=== PATIENT | male | born 1970 | race African-American/Black ===

== ENCOUNTER 2017-06-15 06:21 | Emergency (ER) | payer OTHER, SELFPAY ==
[2017-06-15 06:56] LABS: Absolute Lymphocytes (CBC) 1.8 K/uL (0.7-4.9); Absolute Monocytes 0.7 K/uL (0.1-1.3); Absolute Neutrophil 3.9 K/uL (1.8-8.0); Basophils % 0.2 % (0-1.3); Eosinophils % 1.1 % (0-4.4); Hematocrit 40.6 % (39.6-49.0); Lymphocytes % 27.7 % (15.3-44.8); MCV 86.9 fL (80-100); MPV 8.6 fL (7.6-11.3); Monocytes % 10.2 % (3.3-12.3); RBC Red Blood Cell Count 4.68 M/uL (4.33-5.43)
[2017-06-15 07:00] LABS: Protime INR 0.97
[2017-06-15] MEDS ORDERED: ONDANSETRON 4 MG/2 ML VIAL ONE (07:01)
--- NOTE | 2017-06-15 07:41 | RAD REPORT ---
EXAM DESCRIPTION: CT - Head Brain Wo Cont - 06/15/2017 7:05 am CLINICAL HISTORY: Headache COMPARISON: February 2017 TECHNIQUE: Computed axial tomography of the head was obtained. IV contrast was not requested. All CT scans are performed using dose optimization technique as appropriate and may include automated exposure control or mA/KV adjustment according to patient size. FINDINGS: An intracranial bleed is not seen . The ventricles are normal in caliber. No extra-axial fluid collection is noted. Fluid within the sinuses/ mastoids is not seen. IMPRESSION: No acute intracranial abnormality is seen. If patient's symptoms persist MRI of the bra in would be recommended.
[2017-06-15 08:24] LABS: Bicarbonate 29 mEq/L (21-31); Glucose Level 95 mg/dL (65-120); Potassium 3.7 mEq/L (3.6-5.0); Sodium Level 136 mEq/L (135-145)
[2017-06-15 08:30] LABS: ALT/SGPT 25 IU/L (10-60); AST/SGOT 33 IU/L (10-42); Albumin 4.2 g/dL (3.2-5.5); Alkaline Phosphatase 62 IU/L (42-121); BUN Blood Urea Nitrogen 13 mg/dL (6-20); Bilirubin Direct 0.1 mg/dL (0-0.2); Bilirubin Total 0.8 mg/dL (0.3-1.2); Protein, Total 7.4 g/dL (6.0-8.3)
--- NOTE | 2017-06-15 08:30 | RAD REPORT ---
EXAM DESCRIPTION: Cosmo Single View06/15/2017 6:58 am CLINICAL HISTORY: Chest pain COMPARISON: February 2017 FINDINGS: The lungs appear clear of acute infiltrate. The heart is normal size IMPRESSION: No acute abnormalities displayed
[2017-06-15 08:32] LABS: Urine Blood NEGATIVE (NEG); Urine Glucose NEGATIVE (NEG); Urine Protein NEGATIVE (NEG); Urine Specific Gravity 1.015 (1.005-1.030)
--- NOTE | 2017-06-15 10:08 | EKG ---
Test Date: 2017-06-15 Test Time: 06:29:44 Rewinder Operator: BENY MEASUREMENT RESULTS: Intervals: Rate: 66 WA: 166 QRSD: 82 QT: 394 QTc: 413 [place]: P: 64 WA: 166 QRS: 37 T: 39 INTERPRETIVE STATEMENTS: Normal sinus rhythm Normal ECG Compared to ECG 02/20/2017 09:57:59 Sinus bradycardia no longer present Electronically Signed On 06-15-17 10:07:32 CDT by Alexander Farris
--- NOTE | 2017-06-15 11:51 | ER ---
Nurse's Notes [facility] Name: Damian Abbasi Jr Age: 47 yrs Sex: Male : 1970 Arrival Date: 06/15/2017 Time: 06:22 Bed 7 Private MD: Diagnosis: Chest pain, unspecified;Headache Presentation: 06/15 06:25 Presenting complaint: Patient states: that he woke up at 0330 with migraine. On his way fc to work became photophobic and had nausea. He then went home and at 0530 he started to have chest pain and shortness of breath. States that he was here a couple of months ago and given 30 days worth of medication but did not follow up because he did not have the money so he stopped taking his medications. Transition of care: patient was not received from another setting of care. Onset of symptoms was June 15, 2017 at 03:30. Care prior to arrival: Medication(s) given: Naproxsyn. 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 - Social history:: Smoking status: Patient/guardian denies using tobacco, the patient reports quitting approximately 3 years ago, Patient/guardian denies using alcohol, street drugs. Screenin:36 Abuse screen: Denies threats or abuse. Nutritional screening: No deficits noted. Tuberculosis screening: No symptoms or risk factors identified. Fall Risk None identified. Assessment: 06:34 General: Appears uncomfortable, slender, Behavior is calm, cooperative, Reports bb migraine, chest pain, nausea starting this morning. Pain: Complains of pain in chest Pain does not radiate. Pain began suddenly. Neuro: Level of Consciousness is awake, alert, obeys commands, Oriented to person, place, time, situation. Cardiovascular: Heart tones S1 S2 present Capillary refill < 3 seconds Patient's skin is warm and dry. Pulses are all present. Edema is absent. Rhythm is sinus rhythm. Respiratory: Respiratory effort is even, unlabored, Respiratory pattern is regular, Breath sounds are clear bilaterally. GI: Abdomen is non-distended, Bowel sounds present X 4 quads. : No signs and/or symptoms were reported regarding the genitourinary system. Derm: Skin is dry, Skin is normal, Skin temperature is warm. Musculoskeletal: Circulation, motion, and sensation intact. 07:10 Reassessment: Patient and/or family updated on plan of care and expected duration. Pain jl7 level reassessed. Patient is alert, oriented x 3, equal unlabored respirations, skin warm/dry/pink. Pain: Complains of pain in chest Pain does not radiate. Pain currently is 8 out of 10 on a pain scale. Quality of pain is described as "It feels like a knot." Pain began 4 hours ago. Is continuous. Pain: Complains of pain in headache Pain does not radiate. Pain currently is 8 out of 10 on a pain scale. Quality of pain is described as squeezing, "and pulling." Pain began 4 hours ago. Is continuous. Neuro: Level of Consciousness is awake, alert, obeys commands, Oriented to person, place, time, situation. Cardiovascular: Heart tones S1 S2 present Patient's skin is warm and dry. Rhythm is sinus rhythm. Respiratory: Airway is patent Respiratory effort is even, unlabored, Respiratory pattern is regular, symmetrical. GI: Patient currently denies diarrhea, nausea, vomiting, Pt states "I felt nauseous when I got out of the machine but it's better now.". Derm: Skin is dry, Skin is normal, Skin temperature is warm. Musculoskeletal: Range of motion: intact in all extremities. 08:30 Reassessment: No changes from previously documented assessment. Patient and/or family jl7 updated on plan of care and expected duration. Pain level reassessed. Patient is alert, oriented x 3, equal unlabored respirations, skin warm/dry/pink. 09:29 Reassessment: patient resting in bed, semi-folwers. Eyes closed, respirations are even ap3 and unlabored. Call roman within reach, bed in lowest position, side rails up X's one. 10:30 Reassessment: No changes from previously documented assessment. Patient and/or family jl7 updated on plan of care and expected duration. Pain level reassessed. Patient is alert, oriented x 3, equal unlabored respirations, skin warm/dry/pink. 12:00 Reassessment: patient complains of headache and chest pain, with pain scale of 10/10. ap3 Provider notified, new orders received. . Vital Signs: 06:25 BP 133 / 83; Pulse 62; Resp 18; Temp 97.7(O); Pulse Ox 100% on R/A; Weight 74.84 kg fc (R); Height 5 ft. 10 in. (177.80 cm) (R); Pain 8/10; 07:10 BP 123 / 93; Pulse 54; Resp 16 S; Pulse Ox 99% on R/A; Pain 8/10; jl7 07:47 BP 117 / 84; Pulse 54; Resp 12; Pulse Ox 100% ; jl7 09:27 BP 129 / 95; Pulse 51; Resp 10; Pulse Ox 100% on R/A; ap3 10:30 BP 111 / 83; Pulse 56; Pulse Ox 99% on R/A; ap3 11:30 BP 132 / 89; Pulse 54; Pulse Ox 100% on R/A; ap3 12:15 BP 122 / 91; Pulse 66; Pulse Ox 100% on R/A; ap3 06:25 Body Mass Index 23.67 (74.84 kg, 177.80 cm) ED Course: 06:22 Patient arrived in ED. ds1 06:25 Arm band placed on Patient placed in an exam room, on a stretcher. fc 06:25 Patient has correct armband on for positive identification. Placed in gown. Bed in low fc position. Call light in reach. high lead yarder on. Pulse ox on. NIBP on. 06:25 No provider procedures requiring assistance completed. fc 06:26 Andrea Villeda NP is PHCP. pm1 06:26 Mariano Alfonso MD is Attending Physician. pm1 06:33 Cara Castellanos RN is Primary Nurse. bb 06:34 Patient maintains SpO2 saturation greater than 95% on room air. bb 06:35 Triage completed. fc 06:37 EKG done, by ED staff, reviewed by Andrea Villeda NP. bb 06:40 Initial lab(s) drawn, by ED staff, sent to lab. Missed attempt(s): 20 gauge in right bb antecubital area. by [facility] tech blood was drawn. 06:45 Inserted saline lock: 20 gauge in left antecubital area, using aseptic technique. bb 06:52 X-ray completed. Portable x-ray completed in exam room. Patient tolerated procedure jb2 well. 06:58 XRAY Chest (1 view) In Process Unspecified. EDMS 07:05 CT Head Brain wo Cont In Process Unspecified. EDMS 07:09 Primary Nurse role handed off by Cara Castellanos RN jl7 07:09 Lynne Franklin, LOS is Primary Nurse. jl7 07:53 Urine collected: clean catch specimen, clear. [facility] 08:16 Awaiting lab results. jl7 12:19 IV discontinued, intact, bleeding controlled, No redness/swelling at site. Pressure ap3 dressing applied. Administered Medications: 06:50 Drug: Zofran 4 mg Route: IVP; Site: left antecubital; bb 07:10 Follow up: Response: No adverse reaction; Nausea is decreased jl7 12:02 Drug: Reglan 10 mg Route: IVP; Site: left antecubital; ae1 12:10 Follow up: Response: No adverse reaction jl7 12:04 Drug: TORadol 30 mg Route: IVP; Site: left antecubital; ae1 12:10 Follow up: Response: No adverse reaction jl7 12:06 Drug: Benadryl 12.5 mg Route: IVP; Site: left antecubital; ae1 12:10 Follow up: Response: No adverse reaction jl7 Outcome: 11:51 Discharge ordered by . pm1 12:19 Discharged to home ambulatory, with family. ap3 12:19 Condition: stable 12:19 Discharge instructions given to patient, Instructed on discharge instructions, Demonstrated understanding of instructions. 12:22 Attestation : I agree with everything documented by Larisa, student nurse. jl7 12:23 Patient left the ED. jl7 Signatures: Dispatcher [employer] EDMS Dinesh August jbAmber Sagastume RN RN fc Sanford, Demi ds1 Cara Castellanos RN RN bb Marinas, Patrick, [employer] pm1 Santi Carrillo RN RN ae1 Willa Gonsales [facility] Lynne Franklin RN RN jl7 Larisa Brandt ap3
--- NOTE | 2017-06-15 11:52 | EDPHYS ---
Physician Documentation [facility] Name: Damian Abbasi Jr Age: 47 yrs Sex: Male : 1970 Arrival Date: 06/15/2017 Time: 06:22 Bed 7 Private MD: ED Physician Mariano Alfonso HPI: 06/15 07:30 This 47 yrs old Black Male presents to ER via Ambulatory with complaints of Chest Pain, pm1 Nausea, Headache. 07:30 The patient or guardian reports chest pain that is located primarily in the substernal pm1 area. Onset: at 05:30. The pain does not radiate. Associated signs and symptoms: Pertinent positives: nausea, shortness of breath, Headache onset at 0330, Pertinent negatives: abdominal pain, cough. The chest pain is described as aching. Duration: The patient or guardian reports a single episode. Modifying factors: The symptoms are alleviated by nothing. the symptoms are aggravated by deep breath, palpation of area. The patient has experienced a previous episode, last month. 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 - Social history:: Smoking status: Patient/guardian denies using tobacco, the patient reports quitting approximately 3 years ago, Patient/guardian denies using alcohol, street drugs. ROS: 07:30 Constitutional: Negative for fever, chills, and weight loss, Eyes: Negative for injury, pm1 pain, redness, and discharge, ENT: Negative for injury, pain, and discharge, Neck: Negative for injury, pain, and swelling. 07:30 Respiratory: Negative for shortness of breath, cough, wheezing, and pleuritic chest pain, Abdomen/GI: Negative for abdominal pain, nausea, vomiting, diarrhea, and constipation, Back: Negative for injury and pain, : Negative for injury, bleeding, discharge, and swelling, MS/Extremity: Negative for injury and deformity, Skin: Negative for injury, rash, and discoloration. 07:30 Cardiovascular: Positive for chest pain, Negative for orthopnea, palpitations. 07:30 Neuro: Positive for headache, Negative for altered mental status, dizziness, numbness, seizure activity, weakness. Exam: 07:30 Constitutional: This is a well developed, well nourished patient who is awake, alert, pm1 and in no acute distress. Head/Face: Normocephalic, atraumatic. Eyes: Pupils equal round and reactive to light, extra-ocular motions intact. Lids and lashes normal. Conjunctiva and sclera are non-icteric and not injected. Cornea within normal limits. Periorbital areas with no swelling, redness, or edema. ENT: Nares patent. No nasal discharge, no septal abnormalities noted. Tympanic membranes are normal and external auditory canals are clear. Oropharynx with no redness, swelling, or masses, exudates, or evidence of obstruction, uvula midline. Mucous membranes moist. Neck: Trachea midline, no thyromegaly or masses palpated, and no cervical lymphadenopathy. Supple, full range of motion without nuchal rigidity, or vertebral point tenderness. No Meningismus. 07:30 Cardiovascular: Regular rate and rhythm with a normal S1 and S2. No gallops, murmurs, or rubs. Normal PMI, no JVD. No pulse deficits. Respiratory: Lungs have equal breath sounds bilaterally, clear to auscultation and percussion. No rales, rhonchi or wheezes noted. No increased work of breathing, no retractions or nasal flaring. Abdomen/GI: Soft, non-tender, with normal bowel sounds. No distension or tympany. No guarding or rebound. No evidence of tenderness throughout. Back: No spinal tenderness. No costovertebral tenderness. Full range of motion. Skin: Warm, dry with normal turgor. Normal color with no rashes, no lesions, and no evidence of cellulitis. MS/ Extremity: Pulses equal, no cyanosis. Neurovascular intact. Full, normal range of motion. 07:30 Chest/axilla: Inspection: normal, Palpation: tenderness, of the mid-sternal area, that totally reproduces the patient's complaints. 07:30 Neuro: Orientation: is normal, Motor: is normal, moves all fours, Gait: is steady, at a normal pace, without difficulty. Vital Signs: 06:25 BP 133 / 83; Pulse 62; Resp 18; Temp 97.7(O); Pulse Ox 100% on R/A; Weight 74.84 kg fc (R); Height 5 ft. 10 in. (177.80 cm) (R); Pain 8/10; 07:10 BP 123 / 93; Pulse 54; Resp 16 S; Pulse Ox 99% on R/A; Pain 8/10; jl7 07:47 BP 117 / 84; Pulse 54; Resp 12; Pulse Ox 100% ; jl7 09:27 BP 129 / 95; Pulse 51; Resp 10; Pulse Ox 100% on R/A; ap3 10:30 BP 111 / 83; Pulse 56; Pulse Ox 99% on R/A; ap3 11:30 BP 132 / 89; Pulse 54; Pulse Ox 100% on R/A; ap3 12:15 BP 122 / 91; Pulse 66; Pulse Ox 100% on R/A; ap3 06:25 Body Mass Index 23.67 (74.84 kg, 177.80 cm) fc MDM: 06:36 Patient medically screened. pm1 11:50 Data reviewed: vital signs. Data interpreted: Pulse oximetry: on room air is 100 %. pm1 Interpretation: normal. Counseling: I had a detailed discussion with the patient and/or guardian regarding: the historical points, exam findings, and any diagnostic results supporting the discharge/admit diagnosis, lab results, radiology results, the need for outpatient follow up, to return to the emergency department if symptoms worsen or persist or if there are any questions or concerns that arise at home. 06/15 06:37 Order name: Basic Metabolic Panel; Complete Time: 08:37 pm1 06/15 06:37 Order name: BNP; Complete Time: 08:37 pm1 06/15 06:37 Order name: CBC with Diff; Complete Time: 07:29 pm06/15 06:37 Order name: LFT's; Complete Time: 08:37 pm1 06/15 06:37 Order name: Magnesium; Complete Time: 08:37 pm1 06/15 06:37 Order name: PT-INR; Complete Time: 07:29 pm06/15 06:37 Order name: Ptt, Activated; Complete Time: 07:29 pm06/15 06:37 Order name: Troponin (emerg Dept Use Only); Complete Time: 08:37 pm1 06/15 06:37 Order name: XRAY Chest (1 view); Complete Time: 08:37 pm1 06/15 06:37 Order name: CT Head Brain wo Cont; Complete Time: 07:44 pm1 06/15 07:54 Order name: Urine Dipstick--Ancillary (enter results); Complete Time: 08:37 ag 06/15 10:46 Order name: Troponin (emerg Dept Use Only); Complete Time: 11:48 pm1 06/15 06:37 Order name: EKG; Complete Time: 06:38 pm1 06/15 06:37 Order name: Cardiac monitoring; Complete Time: 06:39 pm1 06/15 06:37 Order name: EKG - Nurse/Tech; Complete Time: 06:39 pm1 06/15 06:37 Order name: IV Saline Lock; Complete Time: 06:50 pm1 06/15 06:37 Order name: Labs collected and sent; Complete Time: 06:50 pm1 06/15 06:37 Order name: O2 Per Protocol; Complete Time: 06:38 pm1 06/15 06:37 Order name: O2 Sat Monitoring; Complete Time: 06:38 pm1 06/15 06:37 Order name: Urine Dipstick-Ancillary (obtain specimen); Complete Time: 07:47 pm1 Administered Medications: 06:50 Drug: Zofran 4 mg Route: IVP; Site: left antecubital; bb 07:10 Follow up: Response: No adverse reaction; Nausea is decreased jl7 12:02 Drug: Reglan 10 mg Route: IVP; Site: left antecubital; ae1 12:10 Follow up: Response: No adverse reaction jl7 12:04 Drug: TORadol 30 mg Route: IVP; Site: left antecubital; ae1 12:10 Follow up: Response: No adverse reaction jl7 12:06 Drug: Benadryl 12.5 mg Route: IVP; Site: left antecubital; ae1 12:10 Follow up: Response: No adverse reaction jl7 Disposition: 06/15/17 11:51 Discharged to Home. Impression: Chest pain, unspecified, Headache. - Condition is Stable. - Discharge Instructions: Nonspecific Chest Pain, General Headache Without Cause. - Medication Reconciliation Form, Thank You Letter, Work release form form. - Follow up: Emergency Department; When: As needed; Reason: Worsening of condition. Follow up: Private Physician; When: 2 - 3 days; Reason: Recheck today's complaints, Continuance of care, Re-evaluation by your physician. - Problem is new. - Symptoms have improved. Addendum: 06/17/2017 07:01 Co-signature as Attending Physician, Mariano Alfonso MD. r n Signatures: Dispatcher [employer] EDAmber Krishnan RN RN Cara Mcfarlane RN RN Mariano Wing MD MD rn Marinas, Patrick, TUBE TURNER TUBE TURNER pm1 Santi Carrillo RN RN ae1 Lynne Franklin RN RN jl7
[2017-06-15] MEDS ORDERED: METOCLOPRAMIDE 10 MG/2mL INJ ONE (12:16)
[2017-06-15] MEDS ORDERED: KETOROLAC 30 MG/ML INJ ONE (12:16)
[2017-06-15] MEDS ORDERED: DIPHENHYDRAMINE 50 MG/ML VIAL ONE (12:16)
[2017-06-15 12:34] VITALS: TEMP 97.7
[2017-06-15 12:40] VITALS: O2SAT 100
[2017-06-15 12:41] VITALS: BP 122/91
== END 2017-06-15 12:23 | disposition home or self-care (01) ==
LOC: ER 06:21
DX: R51 Headache (principal); I10 Essential (primary) hypertension; Z91.013 Allergy to seafood
CPT/HCPCS: 36415; 70450; 71045; 80048; 80076; 81003; 83735; 83880; 84484; 85025; 85610; 85730; 93005; 96374; 96375; 99285; J2405; J2765

== ENCOUNTER 2018-08-29 08:17 | Emergency (ER) | payer SELFPAY ==
[2018-08-29 09:04] LABS: Absolute Lymphocytes (CBC) 1.5 K/uL (0.7-4.9); Basophils % 0.4 % (0-1.3); Eosinophils % 0.4 % (0-4.4); Hematocrit 43.5 % (39.6-49.0); Lymphocytes % 26.6 % (15.3-44.8); MPV 8.4 fL (7.6-11.3); Monocytes % 7.8 % (3.3-12.3); RBC Red Blood Cell Count 4.89 M/uL (4.33-5.43)
[2018-08-29 09:08] LABS: Protime INR 1.04
[2018-08-29 09:20] LABS: ALT/SGPT 27 U/L (12-78); AST/SGOT 21 U/L (15-37); Alkaline Phosphatase 64 U/L (45-117); BUN Blood Urea Nitrogen 10 mg/dL (7-18); Bicarbonate 30 mmol/L (21-32); Bilirubin Direct < 0.1 mg/dL (0-0.2); Bilirubin Total 0.3 mg/dL (0.2-1.0); Glucose Level 95 mg/dL (74-106); Magnesium 2.2 mg/dL (1.8-2.4); NT PRO-BNP 6 pg/mL (<125); Potassium 4.3 mmol/L (3.5-5.1); Protein, Total 8.3 g/dL (6.4-8.2); Sodium Level 140 mmol/L (136-145); Troponin (Emerg Dept Use Only) < 0.02 ng/mL (0.0-0.045)
--- NOTE | 2018-08-29 09:21 | RAD REPORT ---
EXAM DESCRIPTION: RAD - Chest Single View - 08/29/2018 9:10 am CLINICAL HISTORY: CHEST PAIN Chest pain. COMPARISON: Chest Single View dated 06/15/2017; Chest Single View dated 02/20/2017; Chest Single View dated 12/17/2015 FINDINGS: Portable technique limits examination quality. The lungs are grossly clear. The heart is normal in size. No displaced fractures. IMPRESSION: No acute intrathoracic process suspected.
--- NOTE | 2018-08-29 11:04 | ER ---
Nurse's Notes [facility] Name: Damian Abbasi Jr Age: 48 yrs Sex: Male : 1970 Arrival Date: 08/29/2018 Time: 08:18 Bed 15 Private MD: Diagnosis: Dizziness and giddiness;Weakness Presentation: 08/29 08:48 Presenting complaint: Patient states: I was driving to work and I got a headache, ls4 nauseated and dizzy. I work in [place] so I told my boss I could work and drove back here. Transition of care: patient was not received from another setting of care. Onset of symptoms was August 29, 2018 at 06:00. Risk Assessment: Do you want to hurt yourself or someone else? Patient reports no desire to harm self or others. Initial Sepsis Screen: Does the patient meet any 2 criteria? No. Patient's initial sepsis screen is negative. Does the patient have a suspected source of infection? No. Patient's initial sepsis screen is negative. Care prior to arrival: None. 08:48 Method Of Arrival: Ambulatory ls4 08:48 Acuity: CORTNEY 3 ls4 Triage Assessment: 08:50 General: Appears in no apparent distress. Behavior is flat. Pain: Complains of pain in ls4 forehead and left eye Pain currently is 4 out of 10 on a pain scale. Quality of pain is described as aching. Neuro: Level of Consciousness is awake, alert, obeys commands, Oriented to person, place, time, situation, Reports dizziness, headache. GI: Reports nausea. Derm: Skin is pink, warm \T\ dry. 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 - Social history:: Smoking status: Patient/guardian denies using tobacco. - Ebola Screening: : Patient negative for fever greater than or equal to 101.5 degrees Fahrenheit, and additional compatible Ebola Virus Disease symptoms Patient denies exposure to infectious person Patient denies travel to an Ebola-affected area in the 21 days before illness onset No symptoms or risks identified at this time. Screenin:53 Abuse screen: Denies threats or abuse. Denies injuries from another. Nutritional ls4 screening: No deficits noted. Tuberculosis screening: No symptoms or risk factors identified. Fall Risk None identified. Assessment: 08:55 GI: Reports nausea. ls4 09:40 Reassessment: Patient appears in no apparent distress at this time. Patient and/or ls4 family updated on plan of care and expected duration. Pain level reassessed. Patient is alert, oriented x 3, equal unlabored respirations, skin warm/dry/pink. 10:40 Reassessment: Patient appears in no apparent distress at this time. Patient and/or ls4 family updated on plan of care and expected duration. Pain level reassessed. Patient is alert, oriented x 3, equal unlabored respirations, skin warm/dry/pink. 11:21 Reassessment: Patient appears in no apparent distress at this time. Patient and/or ls4 family updated on plan of care and expected duration. Pain level reassessed. Patient is alert, oriented x 3, equal unlabored respirations, skin warm/dry/pink. discharge delayed for additional tests and fluids. GI: Abdomen is flat, non-distended, Bowel sounds present X 4 quads. Abd is soft and non tender X 4 quads. 12:30 Reassessment: Patient appears in no apparent distress at this time. Patient and/or ls4 family updated on plan of care and expected duration. Pain level reassessed. Patient is alert, oriented x 3, equal unlabored respirations, skin warm/dry/pink. 13:13 Reassessment: Patient appears in no apparent distress at this time. Patient and/or ls4 family updated on plan of care and expected duration. Pain level reassessed. Patient is alert, oriented x 3, equal unlabored respirations, skin warm/dry/pink. Vital Signs: 08:52 BP 119 / 92; Pulse 70; Resp 16; Temp 98.0(O); Pulse Ox 99% on R/A; Weight 74.84 kg; ls4 Height 5 ft. 10 in. (177.80 cm); Pain 4/10; 10:00 BP 111 / 96; Pulse 69; Resp 16; Pulse Ox 99% on R/A; Pain 4/10; ls4 10:41 BP 111 / 89; Pulse 57; Resp 16; Temp 98.2(O); Pulse Ox 100% on R/A; Pain 4/10; ls4 11:30 BP 102 / 87; Pulse 62; Resp 14; Temp 98.1(O); Pain 3/10; ls4 12:30 BP 114 / 88; Pulse 59; Resp 14; Pulse Ox 99% on R/A; Pain 3/10; ls4 13:12 BP 112 / 88; Pulse 59; Resp 14; Pulse Ox 99% on R/A; Pain 3/10; ls4 08:52 Body Mass Index 23.67 (74.84 kg, 177.80 cm) ls4 ED Course: 08:18 Patient arrived in ED. as 08:33 Manuelito Schulz MD is Attending Physician. kdr 08:39 Katlyn Parsons, LOS is Primary Nurse. ls4 08:50 Triage completed. ls4 08:52 Arm band placed on. ls4 08:53 Patient has correct armband on for positive identification. Bed in low position. Call ls4 light in reach. Side rails up X 1. classroom monitor on. Pulse ox on. NIBP on. Verbal reassurance given. 08:53 No provider procedures requiring assistance completed. Initial lab(s) drawn, by ED ls4 staff, sent to lab. 08:55 Initial lab(s) drawn, by ks, sent to lab. Inserted saline lock: 20 gauge in right dh3 antecubital area, using aseptic technique. Blood collected. 09:03 X-ray completed. Portable x-ray completed in exam room. Patient tolerated procedure jb2 well. 09:08 XRAY Chest (1 view) In Process Unspecified. EDMS 09:41 EKG done, by cv tech. reviewed by Manuelito Schulz MD. at1 11:26 CT Head Brain wo Cont In Process Unspecified. EDMS 13:41 IV discontinued, intact, bleeding controlled, No redness/swelling at site. Pressure ls4 dressing applied. Administered Medications: 11:19 Drug: NS 0.9% 1000 ml Route: IV; Rate: 1 bolus; Site: right antecubital; ls4 12:30 Follow up: IV Status: Completed infusion; IV Intake: 1000ml ls4 Intake: 12:30 IV: 1000ml; Total: 1000ml. ls4 Outcome: 11:04 Discharge ordered by . kdr 13:41 Discharged to home ambulatory, with family. ls4 13:41 Condition: good 13:41 Discharge instructions given to patient, family, Instructed on discharge instructions, follow up and referral plans. medication usage, safety practices, Demonstrated understanding of instructions, follow-up care, medications, Prescriptions given X 2. 13:42 Patient left the ED. ls4 Signatures: Dispatcher [employer] EDMS Manuelito Schulz MD MD kdr Buechter, Jesse jb2 Martinez, Amelia as Gonzales, Amanda, coldfusion EKG Tat1 Vaishali Rodarte 3 Katlyn Parsons, RN RN ls4
--- NOTE | 2018-08-29 11:05 | EDPHYS ---
Physician Documentation [facility] Name: Damian Abbasi Jr Age: 48 yrs Sex: Male : 1970 Arrival Date: 08/29/2018 Time: 08:18 Bed 15 Private MD: ED Physician Manuelito Schulz HPI: 08/29 10:59 This 48 yrs old Black Male presents to ER via Ambulatory with complaints of High Blood kdr Pressure, Dizziness, Nausea. 10:59 The patient has elevated blood pressure and discovered this at home. Onset: The kdr symptoms/episode began/occurred at an unknown time. Modifying factors: The symptoms are aggravated by movement, Bright lights, The symptoms are alleviated by. Associated signs and symptoms: Pertinent positives: nausea, Photophobia. Severity of symptoms: At its worst the blood pressure was mild, in the emergency department the blood pressure is now normal. The blood pressure problem is resolved. The patient has experienced similar episodes in the past, several times. The patient has not recently seen a physician. 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 - Social history:: Smoking status: Patient/guardian denies using tobacco. - Ebola Screening: : Patient negative for fever greater than or equal to 101.5 degrees Fahrenheit, and additional compatible Ebola Virus Disease symptoms Patient denies exposure to infectious person Patient denies travel to an Ebola-affected area in the 21 days before illness onset No symptoms or risks identified at this time. ROS: 10:59 Constitutional: Negative for fever, chills, and weight loss, ENT: Negative for injury, kdr pain, and discharge, Neck: Negative for injury, pain, and swelling, Cardiovascular: Negative for chest pain, palpitations, and edema, Respiratory: Negative for shortness of breath, cough, wheezing, and pleuritic chest pain, Abdomen/GI: Negative for abdominal pain, nausea, vomiting, diarrhea, and constipation, Back: Negative for injury and pain, : Negative for injury, bleeding, discharge, and swelling, MS/Extremity: Negative for injury and deformity, Skin: Negative for injury, rash, and discoloration, Psych: Negative for depression, anxiety, suicide ideation, homicidal ideation, and hallucinations, Allergy/Immunology: Negative for hives, rash, and allergies, Endocrine: Negative for neck swelling, polydipsia, polyuria, polyphagia, and marked weight changes, Hematologic/Lymphatic: Negative for swollen nodes, abnormal bleeding, and unusual bruising. 10:59 Eyes: Positive for photophobia, Negative for discharge, icterus, injury or acute deformity, itching, matting, pain, swelling, tearing, vision loss, visual disturbance. Exam: 10:59 Constitutional: This is a well developed, well nourished patient who is awake, alert, kdr and in no acute distress. Head/Face: Normocephalic, atraumatic. Eyes: Pupils equal round and reactive to light, extra-ocular motions intact. Lids and lashes normal. Conjunctiva and sclera are non-icteric and not injected. Cornea within normal limits. Periorbital areas with no swelling, redness, or edema. Neck: Trachea midline, no thyromegaly or masses palpated, and no cervical lymphadenopathy. Supple, full range of motion without nuchal rigidity, or vertebral point tenderness. No Meningismus. Chest/axilla: Normal chest wall appearance and motion. Nontender with no deformity. No lesions are appreciated. Cardiovascular: Regular rate and rhythm with a normal S1 and S2. No gallops, murmurs, or rubs. Normal PMI, no JVD. No pulse deficits. Respiratory: Lungs have equal breath sounds bilaterally, clear to auscultation and percussion. No rales, rhonchi or wheezes noted. No increased work of breathing, no retractions or nasal flaring. Abdomen/GI: Soft, non-tender, with normal bowel sounds. No distension or tympany. No guarding or rebound. No evidence of tenderness throughout. Back: No spinal tenderness. No costovertebral tenderness. Full range of motion. Skin: Warm, dry with normal turgor. Normal color with no rashes, no lesions, and no evidence of cellulitis. MS/ Extremity: Pulses equal, no cyanosis. Neurovascular intact. Full, normal range of motion. Neuro: Awake and alert, GCS 15, oriented to person, place, time, and situation. Cranial nerves II-XII grossly intact. Motor strength 5/5 in all extremities. Sensory grossly intact. Cerebellar exam normal. Normal gait. Psych: Awake, alert, with orientation to person, place and time. Behavior, mood, and affect are within normal limits. 10:59 ENT: External ear(s): Ear canal(s): TM's: dullness. Vital Signs: 08:52 BP 119 / 92; Pulse 70; Resp 16; Temp 98.0(O); Pulse Ox 99% on R/A; Weight 74.84 kg; ls4 Height 5 ft. 10 in. (177.80 cm); Pain 4/10; 10:00 BP 111 / 96; Pulse 69; Resp 16; Pulse Ox 99% on R/A; Pain 4/10; ls4 10:41 BP 111 / 89; Pulse 57; Resp 16; Temp 98.2(O); Pulse Ox 100% on R/A; Pain 4/10; ls4 11:30 BP 102 / 87; Pulse 62; Resp 14; Temp 98.1(O); Pain 3/10; ls4 12:30 BP 114 / 88; Pulse 59; Resp 14; Pulse Ox 99% on R/A; Pain 3/10; ls4 13:12 BP 112 / 88; Pulse 59; Resp 14; Pulse Ox 99% on R/A; Pain 3/10; ls4 08:52 Body Mass Index 23.67 (74.84 kg, 177.80 cm) ls4 MDM: 10:59 Data reviewed: vital signs, nurses notes, lab test result(s), radiologic studies. kdr Counseling: I had a detailed discussion with the patient and/or guardian regarding: the historical points, exam findings, and any diagnostic results supporting the discharge/admit diagnosis, lab results, radiology results. 11:04 Patient medically screened. kdr 08/29 08:40 Order name: Basic Metabolic Panel; Complete Time: 10:25 [facility] 08/29 08:40 Order name: CBC with Diff; Complete Time: 10:25 [facility] 08/29 08:40 Order name: LFT's; Complete Time: 10:25 [facility] 08/29 08:40 Order name: Magnesium; Complete Time: 10:25 [facility] 08/29 08:40 Order name: NT PRO-BNP; Complete Time: 10:25 [facility] 08/29 08:40 Order name: PT-INR; Complete Time: 10:25 [facility] 08/29 08:40 Order name: Troponin (emerg Dept Use Only); Complete Time: 10:25 4 08/29 08:40 Order name: XRAY Chest (1 view); Complete Time: 10:25 4 08/29 08:40 Order name: EKG; Complete Time: 08:44 4 08/29 08:40 Order name: Cardiac monitoring; Complete Time: 08:47 [facility] 08/29 08:40 Order name: EKG - Nurse/Tech; Complete Time: 08:48 [facility] 08/29 08:40 Order name: IV Saline Lock; Complete Time: 08:48 [facility] 08/29 11:09 Order name: CT Head Brain wo Cont; Complete Time: 12:40 [facility] 08/29 08:40 Order name: Labs collected and sent; Complete Time: 08:48 4 08/29 08:40 Order name: O2 Per Protocol; Complete Time: 08:48 [facility] 08/29 08:40 Order name: O2 Sat Monitoring; Complete Time: 08:48 ls4 Administered Medications: 11:19 Drug: NS 0.9% 1000 ml Route: IV; Rate: 1 bolus; Site: right antecubital; 4 12:30 Follow up: IV Status: Completed infusion; IV Intake: 1000ml ls4 Disposition: 08/29/18 11:04 Discharged to Home. Impression: Dizziness and giddiness, Weakness. - Condition is Stable. - Discharge Instructions: Vertigo, Wdzq-em-Yjqj, Weakness, Nvqk-xx-Mgbw, Dizziness, Fmvn-wd-Qjvt. - Prescriptions for Meclizine 25 mg Oral Tablet - take 1 tablet by ORAL route every 8 hours As needed; 30 tablet. Zofran 4 mg Oral Tablet - take 1 tablet by ORAL route every 12 hours As needed; 6 tablet. - Medication Reconciliation Form, Thank You Letter, Work release form form. - Follow up: Private Physician; When: 2 - 3 days; Reason: If symptoms return, Further diagnostic work-up, Recheck today's complaints, Continuance of care, Re-evaluation by your physician. - Problem is new. - Symptoms are resolved. Signatures: Dispatcher [employer] EDIL Manuelito Schulz MD MD kdr Stewart, Lisa, RN RN ls4 Corrections: (The following items were deleted from the chart) 11:20 11:04 08/29/2018 11:04 Discharged to Home. Impression: Dizziness and giddiness; ls4 Weakness. Condition is Stable. Forms are Work release form, Medication Reconciliation Form, Thank You Letter, Antibiotic Education, Prescription Opioid Use. Follow up: Private Physician; When: 2 - 3 days; Reason: If symptoms return, Further diagnostic work-up, Recheck today's complaints, Continuance of care, Re-evaluation by your physician. Problem is new. Symptoms are resolved. kdr 13:42 11:20 08/29/2018 11:04 Discharged to Home. Impression: Dizziness and giddiness; ls4 Weakness. Condition is Stable. Discharge Instructions: Vertigo, Riuf-ry-Iovh, Weakness, Pyzq-qj-Mxdr, Dizziness, Luqh-ph-Rswt. Prescriptions for Meclizine 25 mg Oral Tablet - take 1 tablet by ORAL route every 8 hours As needed; 30 tablet, Zofran 4 mg Oral Tablet - take 1 tablet by ORAL route every 12 hours As needed; 6 tablet. and Forms are Work release form, Medication Reconciliation Form, Thank You Letter. Follow up: Private Physician; When: 2 - 3 days; Reason: If symptoms return, Further diagnostic work-up, Recheck today's complaints, Continuance of care, Re-evaluation by your physician. Problem is new. Symptoms are resolved. ls4
[2018-08-29] MEDS ORDERED: NA CHLORIDE 0.9% 1,000 ML ONE (11:29)
--- NOTE | 2018-08-29 11:33 | RAD REPORT ---
EXAM DESCRIPTION: CT - Head Brain Wo Cont - 08/29/2018 11:24 am CLINICAL HISTORY: DIZZINESS Headache drowsiness COMPARISON: Head Brain Wo Cont dated 06/15/2017; Head Brain Wo Cont dated 02/21/2017 TECHNIQUE: All CT scans are performed using dose optimization technique as appropriate and may inclu de automated exposure control or mA/KV adjustment according to patient size. FINDINGS: No intracranial hemorrhage, hydrocephalus or extra-axial fluid collection.No areas of brai n edema or evidence of midline shift. The paranasal sinuses and mastoids are clear. The calvarium is intact. IMPRESSION: No acute intracranial abnormality.
--- NOTE | 2018-08-29 12:38 | EKG ---
Test Date: 2018-08-29 Test Time: 08:59:51 Research Support Specialist: HUBER MEASUREMENT RESULTS: Intervals: Rate: 69 GA: 160 QRSD: 78 QT: 364 QTc: 390 [place]: P: 66 GA: 160 QRS: 51 T: 58 INTERPRETIVE STATEMENTS: Normal sinus rhythm Normal ECG Compared to ECG 06/15/2017 06:29:44 No significant changes Electronically Signed On 08-29-18 12:37:41 CDT by Lennox Nolasco
[2018-08-29 13:53] VITALS: TEMP 98.1
[2018-08-29 13:54] VITALS: O2SAT 99
[2018-08-29 13:56] VITALS: BP 112/88
== END 2018-08-29 13:42 | disposition home or self-care (01) ==
LOC: ER 08:17
DX: R42 Dizziness and giddiness (principal); R53.1 Weakness; I10 Essential (primary) hypertension; Z91.013 Allergy to seafood
CPT/HCPCS: 36415; 70450; 71045; 80048; 80076; 83735; 83880; 84484; 85025; 85610; 93005; 96360; 99285; J7030

== ENCOUNTER 2019-04-30 07:17 | Emergency (ER) | payer OTHER, SELFPAY ==
--- NOTE | 2019-04-30 08:44 | RAD REPORT ---
EXAM DESCRIPTION: RAD - Chest Pa And Lat (2 Views) - 04/30/2019 8:21 am CLINICAL HISTORY: Cough;Congestion Chest pain. COMPARISON: Chest Single View dated 08/29/2018; Chest Single View dated 06/15/2017; Chest Single View d ated 02/20/2017; Chest Single View dated 12/17/2015 FINDINGS: The lungs are clear. The heart is normal in size. No displaced fractures. IMPRESSION: No acute or concerning finding suspected.
--- NOTE | 2019-04-30 08:51 | ER ---
Nurse's Notes [facility] Name: Damian Abbasi Jr Age: 49 yrs Sex: Male : 1970 Arrival Date: 04/30/2019 Time: 07:21 Bed 7 Private MD: Diagnosis: Acute upper respiratory infection, unspecified Presentation: 04/30 07:30 Presenting complaint: Patient states: he has had a scratchy throat, running nose, ah painful cough and breathing heavy for about 3 days. Transition of care: patient was not received from another setting of care. Onset of symptoms was April 26, 2019. Risk Assessment: Do you want to hurt yourself or someone else? Patient reports no desire to harm self or others. Initial Sepsis Screen: Does the patient meet any 2 criteria? No. Patient's initial sepsis screen is negative. Does the patient have a suspected source of infection? No. Patient's initial sepsis screen is negative. Care prior to arrival: None. 07:30 Method Of Arrival: Ambulatory 07:30 Acuity: CORTNEY 4 ah Triage Assessment: 07:35 General: Appears in no apparent distress. Behavior is calm, cooperative. Pain: Denies ah pain. EENT: Reports nasal congestion since Monday. Neuro: Level of Consciousness is awake, alert, Oriented to person, place, time. Cardiovascular: Heart tones S1 S2 present. Respiratory: Reports pain with cough Airway is patent Respiratory effort is even, unlabored, Respiratory pattern is regular, Onset: The symptoms/episode began/occurred the patient has mild shortness of breath. GI: No signs and/or symptoms were reported involving the gastrointestinal system. : No signs and/or symptoms were reported regarding the genitourinary system. Derm: Skin is intact, is healthy with good turgor. Historical: - Allergies: 07:31 SHELLFISH; sv - PMHx: 07:31 Arthritis to back; Hypertension; possible hypertension; sv - PSHx: 07:31 None; sv - Immunization history:: Flu vaccine is not up to date. - Coronavirus screen:: The patient has NOT traveled to [place] in the past 14 days. The patient has NOT had contact with known/suspected case of Coronavirus?. - Social history:: Smoking status: Patient/guardian denies using tobacco, the patient reports quitting approximately 5 years ago. - Ebola Screening: : No symptoms or risks identified at this time. Screenin:48 Abuse screen: Denies threats or abuse. Nutritional screening: No deficits noted. Tuberculosis screening: No symptoms or risk factors identified. Fall Risk None identified. Assessment: 07:48 Respiratory: Breath sounds are clear. ah 07:54 General: Appears in no apparent distress. Behavior is calm, cooperative. Pain: Denies pain. Neuro: Level of Consciousness is awake, alert, Oriented to person, place, time, situation, Tube Room Cashier are equal bilaterally Moves all extremities. Gait is steady, Speech is normal. Cardiovascular: Heart tones S1 S2 present Capillary refill < 3 seconds Patient's skin is warm and dry. Pulses. Respiratory: Airway is patent Respiratory effort is even, unlabored, Respiratory pattern is regular. GI: Abdomen is non-distended, Bowel sounds present X 4 quads. Abd is soft and non tender X 4 quads. : No signs and/or symptoms were reported regarding the genitourinary system. EENT: Reports nasal congestion since Fred. Derm: Skin is intact, is healthy with good turgor, Skin is. Musculoskeletal: Circulation, motion, and sensation intact. 08:48 Reassessment: Patient appears in no apparent distress at this time. Patient and/or family updated on plan of care and expected duration. Pain level reassessed. Patient is alert, oriented x 3, equal unlabored respirations, skin warm/dry/pink. Vital Signs: 07:30 BP 113 / 78; Pulse 69; Resp 18; Pulse Ox 99% ; sv 08:58 BP 126 / 87; Pulse 62; Resp 16; Pulse Ox 100% ; sv ED Course: 07:21 Patient arrived in ED. ag5 07:26 Renea Carney FNP-C is PHCP. kb 07:26 Mariano Alfonso MD is Attending Physician. kb 07:28 Solomon Mock, RN is Primary Nurse. bp 07:30 Arm band placed on Patient placed in an exam room, on a stretcher. sv 07:31 Primary Nurse role handed off by Solomon Mock, RN sv 07:31 Milana Nolasco, RN is Primary Nurse. sv 07:31 Patient has correct armband on for positive identification. Bed in low position. Call light in reach. Adult w/ patient. Pulse ox on. NIBP on. Door closed. Head of bed elevated. 07:46 Triage completed. ah 08:06 Throat Culture Sent. sv 08:14 Patient moved to radiology via wheelchair. ah 08:19 X-ray completed. Patient tolerated procedure well. Patient moved back from radiology. jb2 08:19 Chest Pa And Lat (2 Views) XRAY In Process Unspecified. EDMS 08:21 Patient moved back from radiology. ah 08:50 Nurse Practitioner and/or Physician Landscaper Helper to see patient. ah 08:58 No provider procedures requiring assistance completed. Patient did not have IV access sv during this emergency room visit. Administered Medications: No medications were administered Outcome: 08:49 Discharge ordered by MD. kb 08:59 Discharged to home ambulatory, with family. sv 08:59 Condition: stable 08:59 Discharge instructions given to patient, Instructed on discharge instructions, follow up and referral plans. Demonstrated understanding of instructions, follow-up care. 08:59 Patient left the ED. sv Signatures: Dispatcher [employer] EDFL Renea Carney, SALES AND SERVICE CHANGE LEADER-C SALES AND SERVICE CHANGE LEADER-Nkechi Song, RN RN Dinesh August jb2 Solomon Mock, RN RN Monica Prater ag5 Milana Nolasco, RN RN
--- NOTE | 2019-04-30 08:51 | EDPHYS ---
Physician Documentation [facility] Name: Damian Abbasi Jr Age: 49 yrs Sex: Male : 1970 Arrival Date: 04/30/2019 Time: 07:21 Bed 7 Private MD: ED Physician Mariano Alfonso HPI: 04/30 08:59 This 49 yrs old Black Male presents to ER via Ambulatory with complaints of Weakness, kb Cough, Runny Nose, Breathing Difficulty. 08:59 The patient or guardian reports cough, that is intermittent, described as mild, with no kb sputum, flu symptoms, myalgias. Onset: The symptoms/episode began/occurred 5 day(s) ago. Severity of symptoms: At their worst the symptoms were mild, moderate, in the emergency department the symptoms are unchanged. Modifying factors: The symptoms are alleviated by nothing, the symptoms are aggravated by nothing. Associated signs and symptoms: Pertinent positives: rhinorrhea, sore throat. The patient has not experienced similar symptoms in the past. The patient has not recently seen a physician. Pt reports "scratchy throat" started on Monday. Had congestion and cough develop over the weekend. . Historical: - Allergies: 07:31 SHELLFISH; sv - PMHx: 07:31 Arthritis to back; Hypertension; possible hypertension; sv - PSHx: 07:31 None; sv - Immunization history:: Flu vaccine is not up to date. - Coronavirus screen:: The patient has NOT traveled to [place] in the past 14 days. The patient has NOT had contact with known/suspected case of Coronavirus?. - Social history:: Smoking status: Patient/guardian denies using tobacco, the patient reports quitting approximately 5 years ago. - Ebola Screening: : No symptoms or risks identified at this time. ROS: 08:58 Neck: Negative for injury, pain, and swelling, Cardiovascular: Negative for chest pain, kb palpitations, and edema, Abdomen/GI: Negative for abdominal pain, nausea, vomiting, diarrhea, and constipation, Back: Negative for injury and pain, MS/Extremity: Negative for injury and deformity, Skin: Negative for injury, rash, and discoloration, Neuro: Negative for headache, weakness, numbness, tingling, and seizure. 08:58 Constitutional: Positive for chills, fatigue, malaise. 08:58 ENT: Positive for rhinorrhea, sinus congestion, sore throat. 08:58 Respiratory: Positive for cough. Exam: 08:59 Constitutional: This is a well developed, well nourished patient who is awake, alert, kb and in no acute distress. Head/Face: Normocephalic, atraumatic. ENT: Nares patent. No nasal discharge, no septal abnormalities noted. Tympanic membranes are normal and external auditory canals are clear. Oropharynx with no redness, swelling, or masses, exudates, or evidence of obstruction, uvula midline. Mucous membranes moist. Neck: Trachea midline, no thyromegaly or masses palpated, and no cervical lymphadenopathy. Supple, full range of motion without nuchal rigidity, or vertebral point tenderness. No Meningismus. Chest/axilla: Normal chest wall appearance and motion. Nontender with no deformity. No lesions are appreciated. Cardiovascular: Regular rate and rhythm with a normal S1 and S2. No gallops, murmurs, or rubs. Normal PMI, no JVD. No pulse deficits. Respiratory: Lungs have equal breath sounds bilaterally, clear to auscultation and percussion. No rales, rhonchi or wheezes noted. No increased work of breathing, no retractions or nasal flaring. Abdomen/GI: Soft, non-tender, with normal bowel sounds. No distension or tympany. No guarding or rebound. No evidence of tenderness throughout. Skin: Warm, dry with normal turgor. Normal color with no rashes, no lesions, and no evidence of cellulitis. MS/ Extremity: Pulses equal, no cyanosis. Neurovascular intact. Full, normal range of motion. Neuro: Awake and alert, GCS 15, oriented to person, place, time, and situation. Cranial nerves II-XII grossly intact. Motor strength 5/5 in all extremities. Sensory grossly intact. Cerebellar exam normal. Normal gait. Vital Signs: 07:30 BP 113 / 78; Pulse 69; Resp 18; Pulse Ox 99% ; sv 08:58 BP 126 / 87; Pulse 62; Resp 16; Pulse Ox 100% ; sv MDM: 07:28 Patient medically screened. kb 08:57 Differential Diagnosis: Bronchitis Influenza Upper Respiratory Infection Sinusitis kb Pharyngitis. Data reviewed: vital signs, nurses notes. Data interpreted: Pulse oximetry: on room air is 99 %. Interpretation: normal. Counseling: I had a detailed discussion with the patient and/or guardian regarding: the historical points, exam findings, and any diagnostic results supporting the discharge/admit diagnosis, lab results, radiology results, the need for outpatient follow up, a family practitioner, to return to the emergency department if symptoms worsen or persist or if there are any questions or concerns that arise at home. 08:58 Data reviewed: lab test result(s), radiologic studies. kb 04/30 07:34 Order name: Flu; Complete Time: 08:09 kb 04/30 07:34 Order name: Strep; Complete Time: 08:09 kb 04/30 07:34 Order name: Chest Pa And Lat (2 Views) XRAY kb 04/30 08:05 Order name: Throat Culture EDMS Administered Medications: No medications were administered Disposition: 10:01 Co-signature as Attending Physician, Mariano Alfonso MD. rn Disposition: 04/30/19 08:49 Discharged to Home. Impression: Acute upper respiratory infection, unspecified. - Condition is Stable. - Discharge Instructions: Upper Respiratory Infection, Adult, Cjnw-is-Zsvo, Viral Respiratory Infection, Iktt-Oe-Zski. - Medication Reconciliation Form, Thank You Letter, Antibiotic Education, Prescription Opioid Use, Work release form form. - Follow up: Emergency Department; When: As needed; Reason: Worsening of condition. Follow up: Private Physician; When: 2 - 3 days; Reason: Recheck today's complaints, Continuance of care, Re-evaluation by your physician. Signatures: Dispatcher [employer] EDMS Renea Carney, NEVILLE WOLF-Nkechi Song RN RN sv Nieto, Roman, MD MD rn Harris, Amy, RN RN Corrections: (The following items were deleted from the chart) 08:59 08:49 04/30/2019 08:49 Discharged to Home. Impression: Acute upper respiratory sv infection, unspecified. Condition is Stable. Forms are Medication Reconciliation Form, Thank You Letter, Antibiotic Education, Prescription Opioid Use. Follow up: Emergency Department; When: As needed; Reason: Worsening of condition. Follow up: Private Physician; When: 2 - 3 days; Reason: Recheck today's complaints, Continuance of care, Re-evaluation by your physician. kb
[2019-04-30 09:38] VITALS: BP 126/87; O2SAT 100
== END 2019-04-30 08:59 | disposition home or self-care (01) ==
LOC: ER 07:17
DX: J06.9 Acute upper respiratory infection, unspecified (principal); I10 Essential (primary) hypertension; Z91.013 Allergy to seafood
CPT/HCPCS: 71046; 87070; 87081; 87804; 99284

== ENCOUNTER 2019-12-12 11:18 | Emergency (ER) | payer OTHER, SELFPAY ==
[2019-12-12] MEDS ORDERED: METOCLOPRAMIDE 10 MG/2mL INJ ONE (12:28)
[2019-12-12] MEDS ORDERED: DIPHENHYDRAMINE 50 MG/ML VIAL ONE (12:28)
[2019-12-12] MEDS ORDERED: NA CHLORIDE 0.9% 1,000 ML ONE (12:28)
[2019-12-12] MEDS ORDERED: KETOROLAC 30 MG/ML INJ ONE (12:28)
--- NOTE | 2019-12-12 13:20 | ER ---
Nurse's Notes [facility] Name: Damian Abbasi Jr Age: 49 yrs Sex: Male : 1970 Arrival Date: 12/12/2019 Time: 11:21 Bed 7 Private MD: Diagnosis: Migraine Presentation: 12/11 11:27 Chief complaint: Patient states: PABON and nausea for 2 days. No fever. Excedrin migraine ll1 helps. Sumatriptan just knocks him out and makes him feel groggy. Wants a pain medication he can take and still function. Chief complaint:. Coronavirus screen: Client denies travel out of the [place] in the last 14 days. At this time, the client does not indicate any symptoms associated with coronavirus-19. Ebola Screen: Patient denies travel to an Ebola-affected area in the 21 days before illness onset. Initial Sepsis Screen: Does the patient meet any 2 criteria? No. Patient's initial sepsis screen is negative. Risk Assessment: Do you want to hurt yourself or someone else? Patient reports no desire to harm self or others. Onset of symptoms was December 11, 2019. 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 - Social history:: Smoking status: Patient denies any tobacco usage or history of. Screenin:42 Abuse screen: Denies threats or abuse. Denies injuries from another. Nutritional iw screening: No deficits noted. Tuberculosis screening: No symptoms or risk factors identified. Fall Risk None identified. Assessment: 12:30 General: Appears uncomfortable, Behavior is calm, cooperative, Denies fever, feeling ss ill, fatigue, chills. Pain: Complains of pain in left side of forehead Pain currently is 6 out of 10 on a pain scale. Quality of pain is described as aching, throbbing, Pain began 2-3 days ago. Is continuous, Aggravated by light. Neuro: Level of Consciousness is awake, alert, obeys commands, Oriented to person, place, time, situation. Cardiovascular: Capillary refill < 3 seconds is brisk in bilateral fingers Patient's skin is warm and dry. Respiratory: Airway is patent Respiratory effort is even, unlabored, Respiratory pattern is regular, symmetrical. GI: Reports nausea, Patient currently denies diarrhea, vomiting. : No signs and/or symptoms were reported regarding the genitourinary system. EENT: Oral mucosa is moist. Derm: Skin is intact, is healthy with good turgor, Skin is dry, Skin is pink, warm \T\ dry. normal. Musculoskeletal: Circulation, motion, and sensation intact. Range of motion: intact in all extremities, Swelling absent. 13:30 Reassessment: Patient appears in no apparent distress at this time. Patient and/or ss family updated on plan of care and expected duration. Pain level reassessed. Patient is alert, oriented x 3, equal unlabored respirations, skin warm/dry/pink. Patient states feeling better. Patient states symptoms have improved. 13:42 Reassessment: Patient appears in no apparent distress at this time. Patient and/or iw family updated on plan of care and expected duration. Pain level reassessed. Patient is alert, oriented x 3, equal unlabored respirations, skin warm/dry/pink. Patient states feeling better. Patient states symptoms have improved. Vital Signs: 11:27 BP 118 / 78; Pulse 65; Resp 17; Temp 98.3; Pulse Ox 100% ; Weight 83.91 kg; Height 5 ll1 ft. 10 in. (177.80 cm); Pain 7/10; 13:06 BP 117 / 83; Pulse 58; Resp 13; Pulse Ox 100% on R/A; Pain 4/10; ss 11:27 Body Mass Index 26.54 (83.91 kg, 177.80 cm) ll1 Odalis Coma Score: 13:17 Eye Response: spontaneous(4). Verbal Response: oriented(5). Motor Response: obeys kb commands(6). Total: 15. ED Course: 11:21 Patient arrived in ED. mr 11:29 Triage completed. ll1 11:30 Arm band placed on Patient notified of wait time. ll1 11:53 [facility]ney [facility]C [facility] kb 11:53 Manuelito Schulz MD is Attending Physician. kb 12:07 Akiko Warner RN is Primary Nurse. ss 12:18 Missed attempt(s): 20 gauge in right antecubital area. Bleeding controlled, band aid dh3 applied, catheter tip intact. 12:21 Inserted saline lock: 22 gauge in left antecubital area, using aseptic technique. dh3 12:30 Patient has correct armband on for positive identification. Bed in low position. Call ss light in reach. Side rails up X 1. Pulse ox on. NIBP on. 13:36 IV discontinued, intact, bleeding controlled, No redness/swelling at site. Pressure dh3 dressing applied. 13:42 No provider procedures requiring assistance completed. iw Administered Medications: 12:23 Drug: TORadol 30 mg Route: IVP; Site: left antecubital; ss 13:30 Follow up: Response: No adverse reaction; Pain is decreased ss 12:25 Drug: Benadryl 12.5 mg Route: IVP; Site: left antecubital; ss 17:36 Follow up: Response: No adverse reaction; Pain is decreased ss 12:27 Drug: NS 0.9% 1000 ml Route: IV; Rate: 1000 ml; Site: left antecubital; ss 13:30 Follow up: IV Status: Completed infusion; IV Intake: 1000ml ss 12:27 Drug: Reglan 10 mg Route: IVP; Site: left antecubital; ss 13:30 Follow up: Response: No adverse reaction; Marked relief of symptoms; Pain is decreased ss Intake: 13:30 IV: 1000ml; Total: 1000ml. ss Outcome: 13:19 Discharge ordered by . kb 13:42 Discharged to home ambulatory. iw 13:42 Condition: good 13:42 Discharge instructions given to patient, Instructed on discharge instructions, follow up and referral plans. Demonstrated understanding of instructions, follow-up care. 13:43 Patient left the ED. iw Signatures: Renea Carney, INÉ[employer] CHAIR FINISHER-Naomy Jones mr Vilma Lewis, [place] Akiko Warner RN RN Vaishali Rodarte [facility] Elizabet Spear RN RN ll1
--- NOTE | 2019-12-12 13:20 | EDPHYS ---
Physician Documentation [facility] Name: Damian Abbasi Jr Age: 49 yrs Sex: Male : 1970 Arrival Date: 12/12/2019 Time: 11:21 Bed 7 Private MD: ED Physician Manuelito Schulz HPI: 12/11 13:18 This 49 yrs old Black Male presents to ER via Ambulatory with complaints of Headache, kb Nausea. 13:18 The patient complains of pain to the left side of forehead. The patient describes the kb headache as constant. Onset: The symptoms/episode began/occurred yesterday. Associated signs and symptoms: Pertinent positives: Photophobia. Severity of symptoms: At its worst the pain was moderate, in the emergency department the pain is unchanged. Headache History: The patient has had previous headaches and this one is similar to previous episodes. The symptoms are alleviated by nothing. the symptoms are aggravated by lights. The patient has experienced similar episodes in the past, several times. The patient has not recently seen a physician. 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 - Social history:: Smoking status: Patient denies any tobacco usage or history of. ROS: 13:17 Constitutional: Negative for fever, chills, and weight loss, Cardiovascular: Negative kb for chest pain, palpitations, and edema, Respiratory: Negative for shortness of breath, cough, wheezing, and pleuritic chest pain, Abdomen/GI: Negative for abdominal pain, nausea, vomiting, diarrhea, and constipation, Back: Negative for injury and pain, MS/Extremity: Negative for injury and deformity, Skin: Negative for injury, rash, and discoloration. 13:17 Neuro: Positive for headache, Negative for altered mental status, dizziness, gait disturbance, hearing loss, loss of consciousness, numbness, seizure activity, speech changes, syncope, near syncope, tingling, tinnitus, tremor, visual changes, weakness. Exam: 13:17 Constitutional: This is a well developed, well nourished patient who is awake, alert, kb and in no acute distress. Head/Face: Normocephalic, atraumatic. Eyes: Pupils equal round and reactive to light, extra-ocular motions intact. Lids and lashes normal. Conjunctiva and sclera are non-icteric and not injected. Cornea within normal limits. Periorbital areas with no swelling, redness, or edema. Chest/axilla: Normal chest wall appearance and motion. Nontender with no deformity. No lesions are appreciated. Cardiovascular: Regular rate and rhythm with a normal S1 and S2. No gallops, murmurs, or rubs. Normal PMI, no JVD. No pulse deficits. Respiratory: Lungs have equal breath sounds bilaterally, clear to auscultation and percussion. No rales, rhonchi or wheezes noted. No increased work of breathing, no retractions or nasal flaring. Abdomen/GI: Soft, non-tender, with normal bowel sounds. No distension or tympany. No guarding or rebound. No evidence of tenderness throughout. Skin: Warm, dry with normal turgor. Normal color with no rashes, no lesions, and no evidence of cellulitis. MS/ Extremity: Pulses equal, no cyanosis. Neurovascular intact. Full, normal range of motion. Neuro: Awake and alert, GCS 15, oriented to person, place, time, and situation. Cranial nerves II-XII grossly intact. Motor strength 5/5 in all extremities. Sensory grossly intact. Cerebellar exam normal. Normal gait. Vital Signs: 11:27 BP 118 / 78; Pulse 65; Resp 17; Temp 98.3; Pulse Ox 100% ; Weight 83.91 kg; Height 5 ll1 ft. 10 in. (177.80 cm); Pain 7/10; 13:06 BP 117 / 83; Pulse 58; Resp 13; Pulse Ox 100% on R/A; Pain 4/10; ss 11:27 Body Mass Index 26.54 (83.91 kg, 177.80 cm) ll1 Odalis Coma Score: 13:17 Eye Response: spontaneous(4). Verbal Response: oriented(5). Motor Response: obeys kb commands(6). Total: 15. MDM: 12:01 Patient medically screened. kb 13:17 Data reviewed: vital signs, nurses notes. Data interpreted: Pulse oximetry: on room air kb is 100 %. Interpretation: normal. Counseling: I had a detailed discussion with the patient and/or guardian regarding: the historical points, exam findings, and any diagnostic results supporting the discharge/admit diagnosis, the need for outpatient follow up, a neurologist, to return to the emergency department if symptoms worsen or persist or if there are any questions or concerns that arise at home. 12/11 12:07 Order name: IV Start; Complete Time: 12:22 kb Administered Medications: 12:23 Drug: TORadol 30 mg Route: IVP; Site: left antecubital; ss 13:30 Follow up: Response: No adverse reaction; Pain is decreased ss 12:25 Drug: Benadryl 12.5 mg Route: IVP; Site: left antecubital; ss 17:36 Follow up: Response: No adverse reaction; Pain is decreased ss 12:27 Drug: NS 0.9% 1000 ml Route: IV; Rate: 1000 ml; Site: left antecubital; ss 13:30 Follow up: IV Status: Completed infusion; IV Intake: 1000ml ss 12:27 Drug: Reglan 10 mg Route: IVP; Site: left antecubital; ss 13:30 Follow up: Response: No adverse reaction; Marked relief of symptoms; Pain is decreased ss Disposition: 12/12 09:28 Co-signature as Attending Physician, Manuelito Schulz MD I agree with the assessment and kdr plan of care. Disposition: 12/12/19 13:19 Discharged to Home. Impression: Migraine. - Condition is Stable. - Discharge Instructions: Migraine Headache, [id number]. - Medication Reconciliation Form, Thank You Letter, Antibiotic Education, Prescription Opioid Use, Work release form form. - Follow up: Emergency Department; When: As needed; Reason: Worsening of condition. Follow up: Private Physician; When: 2 - 3 days; Reason: Recheck today's complaints, Continuance of care, Re-evaluation by your physician. Signatures: Renea Carney, COMPUTER FORENSICS TECHNICIAN-C COMPUTER FORENSICS TECHNICIAN-CkManuelito Drake MD MD kdr Williams, Irene, RN RN iw Akiko Warner RN RN ss Elizabet Spear RN RN ll1 Corrections: (The following items were deleted from the chart) 12/11 13:43 13:19 12/12/2019 13:19 Discharged to Home. Impression: Migraine. Condition is Stable. iw Forms are Medication Reconciliation Form, Thank You Letter, Antibiotic Education, Prescription Opioid Use. Follow up: Emergency Department; When: As needed; Reason: Worsening of condition. Follow up: Private Physician; When: 2 - 3 days; Reason: Recheck today's complaints, Continuance of care, Re-evaluation by your physician. kb
[2019-12-12 13:48] VITALS: TEMP 98.3; O2SAT 100
[2019-12-12 13:49] VITALS: BP 117/83
== END 2019-12-12 13:43 | disposition home or self-care (01) ==
LOC: ER 11:18
DX: G43.909 Migraine, unspecified, not intractable, without status migrainosus (principal); I10 Essential (primary) hypertension; Z91.013 Allergy to seafood
CPT/HCPCS: 96361; 96374; 96375; 99283; J1200; J2765; J7030

== ENCOUNTER 2020-07-14 17:49 | Emergency (ER) | payer SELFPAY ==
[2020-07-14 18:19] LABS: Urine Blood Negative (Negative); Urine Glucose Negative (Negative); Urine Protein Negative (Negative); Urine Specific Gravity >=1.030 (1.005-1.030)
[2020-07-14 23:01] LABS: Absolute Lymphocytes (CBC) 2.7 K/uL (0.7-4.9); Basophils % 0.3 % (0-1.3); Hematocrit 40.7 % (39.6-49.0); Lymphocytes % 34.3 % (15.3-44.8); MPV 8.3 fL (7.6-11.3); RBC Red Blood Cell Count 4.63 M/uL (4.33-5.43)
[2020-07-14 23:14] LABS: Potassium 3.6 mmol/L (3.5-5.1)
[2020-07-14 23:28] LABS: Urine Blood Negative (Negative); Urine Glucose Negative (Negative); Urine Protein Negative (Negative); Urine Specific Gravity >=1.030 (1.005-1.030)
[2020-07-15 00:02] LABS: Urine Bacteria <20 /HPF (NONE SEEN); Urine Mucus 2+ /HPF (NONE SEEN); Urine RBC <5 /HPF (NONE SEEN); Urine Urothelial Cells <5 /HPF (NONE SEEN)
--- NOTE | 2020-07-15 00:29 | EDPHYS ---
Physician Documentation [facility] Name: Damian Abbasi Jr Age: 50 yrs Sex: Male : 1970 Arrival Date: 07/14/2020 Time: 17:50 Bed 5 Private MD: ED Physician Abraham Laguerre HPI: 07/15 00:06 This 50 yrs old Black Male presents to ER via Ambulatory with complaints of Urinary kb Problem - blood. 00:06 Associated signs and symptoms: Pertinent positives: hematuria, Pertinent negatives: kb abdominal pain, constipation, diarrhea, dysuria, fever, nausea, vomiting. The patient has not experienced similar symptoms in the past. The patient has not recently seen a physician. 00:27 The patient presents with urinary symptoms, dysuria, hematuria. Onset: The kb symptoms/episode began/occurred this morning. Modifying factors: The symptoms are alleviated by nothing, the symptoms are aggravated by urinating. Severity of symptoms: At their worst the symptoms were moderate, in the emergency department the symptoms have resolved. Historical: - Allergies: 07/14 18:05 SHELLFISH; tw2 - Home Meds: 18:05 Excedrin Migraine 250-250-65 mg oral tab [Active]; Benadryl 25 mg Oral cap [Active]; tw2 - PMHx: 18:05 possible hypertension; Arthritis to back; Migraines; tw2 - PSHx: 18:05 None; tw2 - Immunization history:: Adult Immunizations. - Social history:: Smoking status: . ROS: 07/15 00:06 Constitutional: Negative for fever, chills, and weight loss, Respiratory: Negative for kb shortness of breath, cough, wheezing, and pleuritic chest pain, Abdomen/GI: Negative for abdominal pain, nausea, vomiting, diarrhea, and constipation, Back: Negative for injury and pain, MS/Extremity: Negative for injury and deformity, Skin: Negative for injury, rash, and discoloration, Neuro: Negative for headache, weakness, numbness, tingling, and seizure. : Positive for hematuria, burning with urination. Exam: 00:06 Constitutional: This is a well developed, well nourished patient who is awake, alert, kb and in no acute distress. Head/Face: Normocephalic, atraumatic. Cardiovascular: Regular rate and rhythm with a normal S1 and S2. No gallops, murmurs, or rubs. No pulse deficits. Respiratory: Respirations even and unlabored. No increased work of breathing, no retractions or nasal flaring. Abdomen/GI: Soft, non-tender. No distention Back: No spinal tenderness. No costovertebral tenderness. Full range of motion. Skin: Warm, dry with normal turgor. Normal color. MS/ Extremity: Pulses equal, no cyanosis. Neurovascular intact. Full, normal range of motion. Neuro: Awake and alert, GCS 15, oriented to person, place, time, and situation. Moves all extremities. Normal gait. Vital Signs: 07/14 18:01 BP 145 / 88; Pulse 86; Resp 17; Temp 97.9(TE); Pulse Ox 100% on R/A; Weight 83.91 kg; tw2 Height 5 ft. 10 in. (177.80 cm); Pain 7/10; 22:53 BP 125 / 92; Pulse 60; Resp 16; Pulse Ox 100% on R/A; ad5 07/15 00:30 BP 122 / 81; Pulse 62; Resp 18; Pulse Ox 100% on R/A; mg2 07/14 18:01 Body Mass Index 26.54 (83.91 kg, 177.80 cm) tw2 Odalis Coma Score: 07/14 22:53 Eye Response: spontaneous(4). Verbal Response: oriented(5). Motor Response: obeys ad5 commands(6). Total: 15. MDM: 22:26 Patient medically screened. kb 07/15 00:05 Data reviewed: vital signs, nurses notes. Data interpreted: Pulse oximetry: on room air kb is 100 %. Interpretation: normal. Counseling: I had a detailed discussion with the patient and/or guardian regarding: the historical points, exam findings, and any diagnostic results supporting the discharge/admit diagnosis, lab results, radiology results, the need for outpatient follow up, a family practitioner, to return to the emergency department if symptoms worsen or persist or if there are any questions or concerns that arise at home. 07/14 18:10 Order name: Urine Microscopic Only kb 07/14 18:11 Order name: Urine Microscopic Only; Complete Time: 00:04 EDMS 07/14 18:19 Order name: Urine Dipstick-Ancillary; Complete Time: 22:11 EDMS 07/14 22:35 Order name: Basic Metabolic Panel kb 07/14 22:35 Order name: CBC with Diff; Complete Time: 23:09 kb 07/14 22:35 Order name: Basic Metabolic Panel; Complete Time: 23:19 EDMS 07/14 18:10 Order name: Urine Dipstick-Ancillary (obtain specimen); Complete Time: 22:31 kb 07/14 22:35 Order name: IV Saline Lock; Complete Time: 22:55 kb 07/14 22:35 Order name: Labs collected and sent; Complete Time: 22:55 kb 07/14 22:35 Order name: CT Abd/Pelvis - IV Contrast Only kb 07/14 23:28 Order name: Urine Dipstick-Ancillary; Complete Time: 23:35 EDMS Administered Medications: No medications were administered Disposition: 11:34 Co-signature as Attending Physician, Abraham Laguerre MD I agree with the assessment and christen plan of care. Disposition: 07/15/20 00:28 Discharged to Home. Impression: Hematuria - resolved. - Condition is Stable. - Discharge Instructions: Hematuria, Adult. - Medication Reconciliation Form, Thank You Letter, Antibiotic Education, Prescription Opioid Use, Work release form form. - Follow up: Emergency Department; When: As needed; Reason: Worsening of condition. Follow up: Private Physician; When: 2 - 3 days; Reason: Recheck today's complaints, Continuance of care, Re-evaluation by your physician. Signatures: Dispatcher [employer] EDME Renea Carnye, DELIVERY AND MAIL SORTER-C DELIVERY AND MAIL SORTER-Ckb Abraham Laguerre MD MD cha Nieto, Roman, MD MD rn Wise, Tara RN RN tw2 Bay Sanchez RN RN mg2 Corrections: (The following items were deleted from the chart) 00:27 00:06 : Positive for hematuria, kb kb 00:57 00:28 07/15/2020 00:28 Discharged to Home. Impression: Hematuria - resolved. Condition mg2 is Stable. Forms are Medication Reconciliation Form, Thank You Letter, Antibiotic Education, Prescription Opioid Use. Follow up: Emergency Department; When: As needed; Reason: Worsening of condition. Follow up: Private Physician; When: 2 - 3 days; Reason: Recheck today's complaints, Continuance of care, Re-evaluation by your physician. kb
--- NOTE | 2020-07-15 00:29 | ER ---
Nurse's Notes [facility] Name: Damian Abbasi Jr Age: 50 yrs Sex: Male : 1970 Arrival Date: 07/14/2020 Time: 17:50 Bed 5 Private MD: Diagnosis: Hematuria-resolved Presentation: 07/14 18:01 Chief complaint: Patient states: just started this morning when i woke up, bright red tw2 blood in toilet. it does burn a little bit. it feels like i need to pee but i dont. it does sting a little when i pee. Coronavirus screen: At this time, the client does not indicate any symptoms associated with coronavirus-19. Ebola Screen: Patient denies travel to an Ebola-affected area in the 21 days before illness onset. Initial Sepsis Screen: Does the patient meet any 2 criteria? No. Patient's initial sepsis screen is negative. Does the patient have a suspected source of infection? No. Patient's initial sepsis screen is negative. Risk Assessment: Do you want to hurt yourself or someone else? Patient reports no desire to harm self or others. Onset of symptoms was July 14, 2020. 18:01 Method Of Arrival: Ambulatory tw2 18:01 Acuity: CORTNEY 3 tw2 Triage Assessment: 18:05 General: Appears in no apparent distress. slender, well groomed, Behavior is calm, tw2 cooperative, appropriate for age. Pain: Complains of pain in left low back and right low back. Historical: - Allergies: 18:05 SHELLFISH; tw2 - Home Meds: 18:05 Excedrin Migraine 250-250-65 mg oral tab [Active]; Benadryl 25 mg Oral cap [Active]; tw2 - PMHx: 18:05 possible hypertension; Arthritis to back; Migraines; tw2 - PSHx: 18:05 None; tw2 - Immunization history:: Adult Immunizations. - Social history:: Smoking status: . Screenin:54 Abuse screen: Denies threats or abuse. Denies injuries from another. Nutritional ad5 screening: No deficits noted. Tuberculosis screening: No symptoms or risk factors identified. Fall Risk No fall in past 12 months (0 pts). No secondary diagnosis (0 pts). IV access (20 points). Ambulatory Aid- None/Bed Rest/Nurse Assist (0 pts). Gait- Normal/Bed Rest/Wheelchair (0 pts) Mental Status- Oriented to own ability (0 pts). Total [place] Fall Scale indicates No Risk (0-24 pts). Assessment: 22:50 General: Appears in no apparent distress. Behavior is calm, cooperative, appropriate ad5 for age, Smells of. Neuro: No deficits noted. Level of Consciousness is awake, alert, obeys commands, Oriented to person, place, time, situation. Cardiovascular: No deficits noted. Denies chest pain, shortness of breath, Heart tones S1 Capillary refill < 3 seconds Clubbing of nail beds is absent JVD is absent Patient's skin is warm and dry. Rhythm is regular Chest pain is denied. Respiratory: No deficits noted. Airway is patent Trachea midline Respiratory effort is even, unlabored, Respiratory pattern is regular, symmetrical. GI: No deficits noted. Bowel sounds present X 4 quads. Abd is soft and non tender X 4 quads. GI: Patient currently denies normal bowel habits, bloody stool, nausea, vomiting. : No deficits noted. Reports burning with urination, "bright red blood" upon urinating this am, denies past hx of this. : Reports Denies discharge, urinary frequency, urgency. Derm: No deficits noted. Musculoskeletal: No deficits noted. 23:37 Reassessment: Patient appears in no apparent distress at this time. No changes from ad5 previously documented assessment. Patient and/or family updated on plan of care and expected duration. Pain level reassessed. 07/15 00:56 Reassessment: Patient and/or family updated on plan of care and expected duration. Pain mg2 level reassessed. Patient is alert, oriented x 3, equal unlabored respirations, skin warm/dry/pink. Discharge instruction given to patient verbalized the understanding of instruction. Pt left ED ambulatory accompanied by family, pt tolerating well. Vital Signs: 07/14 18:01 BP 145 / 88; Pulse 86; Resp 17; Temp 97.9(TE); Pulse Ox 100% on R/A; Weight 83.91 kg; tw2 Height 5 ft. 10 in. (177.80 cm); Pain 7/10; 22:53 BP 125 / 92; Pulse 60; Resp 16; Pulse Ox 100% on R/A; ad5 07/15 00:30 BP 122 / 81; Pulse 62; Resp 18; Pulse Ox 100% on R/A; mg2 07/14 18:01 Body Mass Index 26.54 (83.91 kg, 177.80 cm) tw2 [place] Coma Score: 07/14 22:53 Eye Response: spontaneous(4). Verbal Response: oriented(5). Motor Response: obeys ad5 commands(6). Total: 15. ED Course: 17:50 Patient arrived in ED. as 18:02 Triage completed. tw2 18:05 Arm band placed on. tw2 22:26 Renea Carney F[facility]-C [facility]. kb 22:26 Abraham Laguerre MD is Attending Physician. kb 22:37 Santi Hill is Primary Nurse. ad5 22:54 No provider procedures requiring assistance completed. Inserted saline lock: 20 gauge ad5 in right antecubital area, using aseptic technique. 22:55 Basic Metabolic Panel Sent. ad5 22:55 CBC with Diff Sent. ad5 23:37 Urine Microscopic Only Sent. ad5 23:37 Urine Microscopic Only Sent. ad5 23:46 CT Abd/Pelvis - IV Contrast Only In Process Unspecified. EDMS 05 00:55 IV discontinued, intact, bleeding controlled, No redness/swelling at site. Pressure mg2 dressing applied. 00:57 Patient has correct armband on for positive identification. Bed in low position. Call mg2 light in reach. Side rails up X2. Administered Medications: No medications were administered Outcome: 00:28 Discharge ordered by . kb 00:56 Discharged to home ambulatory, with family. mg2 00:56 Condition: stable 00:56 Discharge instructions given to patient, Instructed on discharge instructions, Demonstrated understanding of instructions, follow-up care. 00:57 Patient left the ED. mg2 Signatures: Dispatcher [employer] EDGA Renea Carney FNP-C FNP-Ckb Martinez, Amelia as Silvia Abbasi RN RN tw2 Bay Sanchez RN RN mg2 Santi Hill ad5
[2020-07-15 01:04] VITALS: TEMP 97.9; O2SAT 100
[2020-07-15 01:06] VITALS: BP 122/81
--- NOTE | 2020-07-15 11:41 | RAD REPORT ---
EXAM DESCRIPTION: CT - Abdomen Pelvis W Contrast - 07/15/2020 6:56 am CLINICAL HISTORY: The patient is 50 years old and is Male; HEMATURIA TECHNIQUE: Axial computed tomography images of the abdomen and pelvis with intravenous contrast. S agittal and coronal reformatted images were created and reviewed. This CT exam was performed using one or more of the following dose reduction techniques: automated exposure control, adjustment of t he mA and/or kV according to patient size, and/or use of iterative reconstruction technique. COMPARISON: No relevant prior studies available. FINDINGS: Lung bases: Unremarkable. No mass. No consolidation. ABDOMEN: Liver: Unremarkable. No mass. Gallbladder and bile ducts: Unremarkable. No calcified stones. No ductal dilation. Pancreas: Unremarkable. No mass. No ductal dilation. Spleen: Unremarkable. No splenomegaly. Adrenals: Unremarkable. No mass. Kidneys and ureters: Unremarkable. No solid mass. No hydronephrosis. Stomach and bowel: Unremarkable. No obstruction. No mucosal thickening. PELVIS: Appendix: No findings to suggest acute appendicitis. Bladder: Unremarkable. No mass. Reproductive: Unremarkable as visualized. ABDOMEN and PELVIS: Intraperitoneal space: Unremarkable. No free air. No significant fluid collection. Bones/joints: No acute fracture. No dislocation. Soft tissues: Unremarkable. Vasculature: Unremarkable. No abdominal aortic aneurysm. Lymph nodes: Unremarkable. No enlarged lymph nodes. IMPRESSION: Normal abdomen and pelvis CT. Electronically signed by: Harpal Quintanilla MD 07/15/2020 12:09 AM CDT Due to temporary technical issues with the PACS/Fluency reporting system, reports are being signed by the in house radiologist without review as a courtesy to ensure prompt reporting. The interpreting r adiologist is fully responsible for the content of the report.
== END 2020-07-15 00:57 | disposition home or self-care (01) ==
LOC: ER 17:49
DX: R31.9 Hematuria, unspecified (principal); Z91.013 Allergy to seafood
CPT/HCPCS: 36415; 74177; 80048; 81003; 81015; 85025; 99283; Q9967

== ENCOUNTER 2021-05-21 07:07 | Emergency (ER) | payer SELFPAY ==
[2021-05-21] MEDS ORDERED: METOCLOPRAMIDE 10 MG/2mL INJ ONE (07:58)
[2021-05-21] MEDS ORDERED: DIPHENHYDRAMINE 50 MG/ML VIAL ONE (07:58)
[2021-05-21] MEDS ORDERED: KETOROLAC 30 MG/ML INJ ONE (07:58)
[2021-05-21] MEDS ORDERED: NA CHLORIDE 0.9% 1,000 ML ONE (07:59)
--- NOTE | 2021-05-21 08:13 | RAD REPORT ---
EXAM DESCRIPTION: CT - Head Brain Wo Cont - 05/21/2021 8:06 am CLINICAL HISTORY: Dizziness;Headache COMPARISON: Head Brain Wo Cont dated 08/29/2018; Head Brain Wo Cont dated 06/15/2017 TECHNIQUE: All CT scans are performed using dose optimization technique as appropriate and may inclu de automated exposure control or mA/KV adjustment according to patient size. FINDINGS: No intracranial hemorrhage, hydrocephalus or extra-axial fluid collection.No areas of brai n edema or evidence of midline shift. The paranasal sinuses and mastoids are clear. The calvarium is intact. IMPRESSION: No acute intracranial abnormality.
--- NOTE | 2021-05-21 09:52 | ER ---
Nurse's Notes [facility] Name: Damian Abbasi Jr Age: 51 yrs Sex: Male : 1970 Arrival Date: 05/21/2021 Time: 07:11 Bed 19 Private MD: None, None Diagnosis: Headache;Migraine without aura, not intractable Presentation: 05/21 07:19 Chief complaint: Patient states: Migraine x 2 days, hx of migraines, OTC medication not jl7 helping, sumatriptan not helping. reports nausea. Coronavirus screen: At this time, the client does not indicate any symptoms associated with coronavirus-19. Ebola Screen: No symptoms or risks identified at this time. Initial Sepsis Screen: Does the patient meet any 2 criteria? No. Patient's initial sepsis screen is negative. Does the patient have a suspected source of infection? No. Patient's initial sepsis screen is negative. Risk Assessment: Do you want to hurt yourself or someone else? Patient reports no desire to harm self or others. Onset of symptoms was May 19, 2021. 07:19 Method Of Arrival: Ambulatory [facility] 07:19 Acuity: CORTNEY 3 jl7 Triage Assessment: 07:21 Headache History: The patient has had previous headaches and this one is similar to jl7 previous episodes. General: Appears in no apparent distress. uncomfortable, Behavior is calm, cooperative, appropriate for age. Pain: Complains of pain in left side of forehead Pain currently is 8 out of 10 on a pain scale. Pain began 2-3 days ago. Also complains of nausea, photophobia. Neuro: Level of Consciousness is awake, alert, obeys commands, Oriented to person, place, time, situation. 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 - Social history:: Smoking status: Reported history of juuling and/or vaping. Screenin:48 Abuse screen: Denies threats or abuse. Denies injuries from another. Nutritional ww screening: No deficits noted. Tuberculosis screening: No symptoms or risk factors identified. Fall Risk None identified. Assessment: 08:48 General: Appears in no apparent distress. Behavior is cooperative. Pain: Complains of ww pain in left parietal area, right parietal area, left frontal area, left temporal area, right frontal area and right temporal area. Neuro: Level of Consciousness is awake, alert, obeys commands, Oriented to person, place, time, situation, Moves all extremities. Speech is normal, Reports headache. Cardiovascular: Capillary refill < 3 seconds Patient's skin is warm and dry. Respiratory: Airway is patent Respiratory effort is even, unlabored, Respiratory pattern is regular, symmetrical. GI: No signs and/or symptoms were reported involving the gastrointestinal system. : No signs and/or symptoms were reported regarding the genitourinary system. EENT: No signs and/or symptoms were reported regarding the EENT system. Derm: Skin is intact, is healthy with good turgor, Skin is pink, warm \T\ dry. 09:30 Reassessment: Patient appears in no apparent distress at this time. No changes from ww previously documented assessment. Patient and/or family updated on plan of care and expected duration. Pain level reassessed. Patient is alert, oriented x 3, equal unlabored respirations, skin warm/dry/pink. 10:30 Reassessment: Patient appears in no apparent distress at this time. No changes from previously documented assessment. Patient and/or family updated on plan of care and expected duration. Pain level reassessed. Patient is alert, oriented x 3, equal unlabored respirations, skin warm/dry/pink. IVF still infusing. 11:07 Reassessment: Pt will be discharged once fluids are done infusing. [facility] Vital Signs: 07:19 BP 125 / 83; Pulse 74; Resp 15; Temp 98.5; Pulse Ox 100% ; Weight 83.91 kg; Height 5 7 ft. 10 in. (177.80 cm); Pain 8/10; 11:37 BP 112 / 72; Pulse 67; Resp 16; Pulse Ox 100% on R/A; ww 07:19 Body Mass Index 26.54 (83.91 kg, 177.80 cm) jl7 ED Course: 07:11 Patient arrived in ED. as 07:11 None, None is Private Physician. as 07:17 Manuelito Schulz MD is Attending Physician. kdr 07:21 Triage completed. jl7 07:21 Arm band placed on right wrist. jl7 07:40 Mesha Garza, RN is Primary Nurse. vc1 08:06 CT Head Brain wo Cont In Process Unspecified. EDMS 08:35 Missed attempt(s): 22 gauge in right antecubital area. Bleeding controlled, band aid ll1 applied, catheter tip intact. 08:39 Inserted saline lock: 22 gauge in left hand, using aseptic technique. ll1 08:48 Patient has correct armband on for positive identification. Placed in gown. Bed in low ww position. Call light in reach. Adult w/ patient. 11:37 No provider procedures requiring assistance completed. Inserted intact, bleeding ww controlled, No redness/swelling at site. Pressure dressing applied. Administered Medications: 08:47 Drug: Ketorolac 15 mg Route: IVP; Site: left hand; ww 08:47 Drug: Benadryl (diphenhydrAMINE) 25 mg Route: IVP; Site: left hand; ww 08:47 Drug: Reglan (metoCLOPramide) 10 mg Route: IVP; Site: left hand; ww 08:47 Drug: NS 0.9% 1000 ml Route: IV; Rate: 1 bolus; Site: left hand; ww Outcome: 09:51 Discharge ordered by MD. kdr 11:37 Discharged to home ambulatory, with family. ww 11:37 Condition: stable 11:37 Discharge instructions given to patient, Instructed on discharge instructions, follow up and referral plans. no drinking with medication, medication usage, safety practices, Demonstrated understanding of instructions, follow-up care, medications, Prescriptions given X 1. 11:38 Patient left the ED. ww Signatures: Dispatcher [employer] EDMS Manuelito Schulz MD MD kdr Martinez, Amelia as Leal, Jahala, RN RN jl7 Elizabet Spear RN RN ll1 Becki Fischer RN RN ww Mesha Garza, RN RN vc1
--- NOTE | 2021-05-21 09:52 | EDPHYS ---
Physician Documentation [facility] Name: Damian Abbasi Jr Age: 51 yrs Sex: Male : 1970 Arrival Date: 05/21/2021 Time: 07:11 Bed 19 Private MD: None, None ED Physician Manuelito Schulz HPI: 05/21 07:40 This 51 yrs old Black Male presents to ER via Ambulatory with complaints of Headache. kdr 07:47 The patient complains of pain to the top of head. The patient describes the headache as kdr aching, constant, a pressure, unrelenting. Onset: The symptoms/episode began/occurred acutely, Patient states that the headache began Monday morning. Associated signs and symptoms: Pertinent positives: dizziness, nausea, Photophobia Pertinent negatives: fever, malaise, neck stiffness, paresthesias, Photophobia rash, sinus congestion, sinus tenderness, vision changes, vision loss. Severity of symptoms: At its worst the pain was mild, in the emergency department the pain is unchanged. Headache History: Other More persistent than usual. The symptoms are alleviated by nothing. Darkened room, the symptoms are aggravated by lights, movement. The patient has experienced similar episodes in the past, multiple times. The patient has not recently seen a physician. 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 - Social history:: Smoking status: Reported history of juuling and/or vaping. ROS: 07:47 Constitutional: Negative for fever, chills, and weight loss, Eyes: Negative for injury, kdr pain, redness, and discharge, Neck: Negative for injury, pain, and swelling, Cardiovascular: Negative for chest pain, palpitations, and edema, Respiratory: Negative for shortness of breath, cough, wheezing, and pleuritic chest pain, Abdomen/GI: Negative for abdominal pain, nausea, vomiting, diarrhea, and constipation, : Negative for injury, bleeding, discharge, and swelling, MS/Extremity: Negative for injury and deformity, Skin: Negative for injury, rash, and discoloration, Psych: Negative for depression, anxiety, suicide ideation, homicidal ideation, and hallucinations, Allergy/Immunology: Negative for hives, rash, and allergies, Endocrine: Negative for neck swelling, polydipsia, polyuria, polyphagia, and marked weight changes, Hematologic/Lymphatic: Negative for swollen nodes, abnormal bleeding, and unusual bruising. 07:47 Neuro: Positive for headache, Negative for altered mental status, dizziness, gait disturbance, hearing loss, loss of consciousness, numbness, seizure activity, speech changes, syncope, near syncope, tinnitus, tremor, weakness. Exam: 07:47 Constitutional: This is a well developed, well nourished patient who is awake, alert, kdr and in no acute distress. Head/Face: Normocephalic, atraumatic. Eyes: Pupils equal round and reactive to light, extra-ocular motions intact. Lids and lashes normal. Conjunctiva and sclera are non-icteric and not injected. Cornea within normal limits. Periorbital areas with no swelling, redness, or edema. Neck: Trachea midline, no thyromegaly or masses palpated, and no cervical lymphadenopathy. Supple, full range of motion without nuchal rigidity, or vertebral point tenderness. No Meningismus. Chest/axilla: Normal chest wall appearance and motion. Nontender with no deformity. No lesions are appreciated. Cardiovascular: Regular rate and rhythm with a normal S1 and S2. No gallops, murmurs, or rubs. Normal PMI, no JVD. No pulse deficits. Respiratory: Lungs have equal breath sounds bilaterally, clear to auscultation and percussion. No rales, rhonchi or wheezes noted. No increased work of breathing, no retractions or nasal flaring. Abdomen/GI: Soft, non-tender, with normal bowel sounds. No distension or tympany. No guarding or rebound. No evidence of tenderness throughout. Back: No spinal tenderness. No costovertebral tenderness. Full range of motion. Skin: Warm, dry with normal turgor. Normal color with no rashes, no lesions, and no evidence of cellulitis. MS/ Extremity: Pulses equal, no cyanosis. Neurovascular intact. Full, normal range of motion. Neuro: Awake and alert, GCS 15, oriented to person, place, time, and situation. Cranial nerves II-XII grossly intact. Motor strength 5/5 in all extremities. Sensory grossly intact. Cerebellar exam normal. Normal gait. Psych: Awake, alert, with orientation to person, place and time. Behavior, mood, and affect are within normal limits. Vital Signs: 07:19 BP 125 / 83; Pulse 74; Resp 15; Temp 98.5; Pulse Ox 100% ; Weight 83.91 kg; Height 5 jl7 ft. 10 in. (177.80 cm); Pain 8/10; 11:37 BP 112 / 72; Pulse 67; Resp 16; Pulse Ox 100% on R/A; ww 07:19 Body Mass Index 26.54 (83.91 kg, 177.80 cm) jl7 MDM: 07:47 Data reviewed: vital signs, nurses notes, lab test result(s), radiologic studies. kdr Counseling: I had a detailed discussion with the patient and/or guardian regarding: the historical points, exam findings, and any diagnostic results supporting the discharge/admit diagnosis, lab results, radiology results. 08:55 ED course: Patient is feeling somewhat better. Patient is now getting medications kdr previously ordered.. 09:51 Patient medically screened. kdr 05/21 07:44 Order name: CT Head Brain wo Cont; Complete Time: 08:36 kdr Administered Medications: 08:47 Drug: Ketorolac 15 mg Route: IVP; Site: left hand; ww 08:47 Drug: Benadryl (diphenhydrAMINE) 25 mg Route: IVP; Site: left hand; ww 08:47 Drug: Reglan (metoCLOPramide) 10 mg Route: IVP; Site: left hand; ww 08:47 Drug: NS 0.9% 1000 ml Route: IV; Rate: 1 bolus; Site: left hand; ww Disposition Summary: 05/21/21 09:51 Discharge Ordered Location: Home kdr Problem: an acute exacerbation kdr Symptoms: have improved kdr Condition: Stable kdr Diagnosis - Headache kdr - Migraine without aura, not intractable kdr Followup: kdr - With: Private Physician - When: 2 - 3 days - Reason: If symptoms return, Further diagnostic work-up, Recheck today's complaints, Continuance of care, Re-evaluation by your physician Discharge Instructions: - Discharge Summary Sheet kdr - Migraine Headache, [id number] kdr Forms: - Medication Reconciliation Form kdr - Thank You Letter kdr - Work release form ww Prescriptions: - Reglan 10 mg Oral Tablet - take 1 tablet by ORAL route every 6 hours take 30 minutes before meals and at kdr bedtime; 10 tablet; Refills: 0, Product Selection Permitted Signatures: Dispatcher [employer] Manuelito Morales MD MD kdr Leal, Jahala RN RN jl7 Becki Fischer RN RN ww
[2021-05-21 11:45] VITALS: TEMP 98.5; O2SAT 100
[2021-05-21 11:46] VITALS: BP 112/72
== END 2021-05-21 11:38 | disposition home or self-care (01) ==
LOC: ER 07:07
DX: G43.009 Migraine without aura, not intractable, without status migrainosus (principal); Z91.013 Allergy to seafood
CPT/HCPCS: 70450; 96374; 96375; 99284; J1200; J2765; J7030

== ENCOUNTER 2021-07-01 00:46 | Emergency (ER) | payer SELFPAY ==
[2021-07-01] MEDS ORDERED: ACETAMINOPHEN 325 MG TABLET ONE (01:28)
[2021-07-01] MEDS ORDERED: NA CHLORIDE 0.9% 1,000 ML ONE (01:28)
[2021-07-01 01:44] LABS: Absolute Lymphocytes (CBC) 0.8 K/uL (0.7-4.9); Hematocrit 38.6 % (39.6-49.0); Lymphocytes % 13.1 % (15.3-44.8); MPV 7.8 fL (7.6-11.3); RBC Red Blood Cell Count 4.49 M/uL (4.33-5.43)
[2021-07-01 01:50] LABS: Potassium 3.8 mmol/L (3.5-5.1)
[2021-07-01 02:19] LABS: SARS-COV-2 RT PCR NEGATIVE (NEGATIVE)
[2021-07-01 03:01] LABS: Urine Blood Negative (Negative); Urine Glucose Negative (Negative); Urine Protein Negative (Negative)
[2021-07-01 03:41] LABS: Urine Bacteria <20 /HPF (NONE SEEN); Urine RBC <5 /HPF (NONE SEEN); Urine Urothelial Cells <5 /HPF (NONE SEEN)
--- NOTE | 2021-07-01 04:17 | EDPHYS ---
Physician Documentation [facility] Name: Damian Abbasi Jr Age: 51 yrs Sex: Male : 1970 Arrival Date: 07/01/2021 Time: 00:52 Bed 6 Private MD: ED Physician Mariano Alfonso HPI: 07/01 01:10 This 51 yrs old Black Male presents to ER via Wheelchair with complaints of Fever. rn 01:10 The patient reports fever, not measured (subjective). Onset: The symptoms/episode rn began/occurred yesterday. Modifying factors: there are no obvious modifying factors. Associated signs and symptoms: Pertinent positives: chills, diarrhea, Pertinent negatives: abdominal pain, hemoptysis, runny nose, skin rash, shortness of breath, swelling, vomiting. Severity of symptoms: At their worst the symptoms were moderate in the emergency department the symptoms are unchanged. The patient has not experienced similar symptoms in the past. The patient has not recently seen a physician. Pt and report fever to 101, chills, myalgias, and generalized weakness with diffuse muscle aches that began yesterday. Reports mild diarrhea. No neck stiffness. No cough or sob. No focal abd pain. Denies dysuria or hematuria. NO known sick contacts. . Historical: - Allergies: 01:08 SHELLFISH; jb4 - Home Meds: 01:08 None [Active]; jb4 - PMHx: 01:08 Arthritis to back; Migraines; possible hypertension; jb4 - PSHx: 01:08 None; jb4 - Immunization history:: Adult Immunizations up to date. - Social history:: Smoking status: Reported history of juuling and/or vaping. - Family history:: not pertinent. - Hospitalizations: : No recent hospitalization is reported. ROS: 01:12 Constitutional: + fever and chills Eyes: Negative for injury, pain, redness, and rn trauma, ENT: Negative for injury, pain, and discharge, Neck: Negative for injury, pain, and swelling, Cardiovascular: Negative for palpitations, and edema, Respiratory: Negative for shortness of breath, cough, wheezing, and pleuritic chest pain, Abdomen/GI: Negative for abdominal pain, nausea, vomiting, diarrhea, and constipation, Back: Negative for injury and pain, : Negative for injury, bleeding, discharge, and swelling, MS/Extremity: Negative for injury and deformity, Skin: Negative for injury, rash, and discoloration, Neuro: Negative for headache, numbness, tingling, and seizure. Exam: 01:12 Constitutional: This is a well developed, well nourished patient who is awake, alert, rn slow to move into bed but ambulatory from wheelchair to bed Head/Face: Normocephalic, atraumatic. Eyes: Pupils equal round and reactive to light, extra-ocular motions intact. Lids and lashes normal. Conjunctiva and sclera are non-icteric and not injected. Cornea within normal limits. Periorbital areas with no swelling, redness, or edema. ENT: dry MM, no stridor Neck: Trachea midline, no masses palpated. Supple, full range of motion without nuchal rigidity, or vertebral point tenderness. No Meningismus. Cardiovascular: Regular rate and rhythm. No pulse deficits. Respiratory: No increased work of breathing, no retractions or nasal flaring. Abdomen/GI: Soft, non-tender Back: No spinal tenderness. No costovertebral tenderness. Full range of motion. Skin: Warm, dry, no rash or cyanosis MS/ Extremity: Pulses equal, no cyanosis. Neurovascular intact. Full, normal range of motion. Equal circumference. Neuro: Awake and alert, GCS 15, oriented to person, place, time, and situation. 01:21 ECG was reviewed by the Attending Physician. rn Vital Signs: 01:06 BP 123 / 81; Pulse 98; Resp 16; Temp 100.2(O); Pulse Ox 99% on R/A; Weight 81.65 kg jb4 (R); Height 5 ft. 10 in. (177.80 cm) (R); Pain 9/10; 02:01 BP 119 / 80; Pulse 86; Resp 16 S; Pulse Ox 99% on R/A; as6 03:01 BP 111 / 75; Pulse 77; Resp 13 S; Temp 98.5(O); Pulse Ox 98% on R/A; as6 04:18 BP 95 / 60; Pulse 75; Resp 15 S; Pulse Ox 99% on R/A; as6 01:06 Body Mass Index 25.83 (81.65 kg, 177.80 cm) jb4 MDM: 00:54 Patient medically screened. rn 04:14 Differential diagnosis: viral Infection, bacterial infection, URI, bronchitis, rn pneumonia UTI, gastroenteritis. Data reviewed: vital signs, nurses notes, lab test result(s), radiologic studies, CT scan, plain films, and as a result, I will discharge patient. Counseling: I had a detailed discussion with the patient and/or guardian regarding: the historical points, exam findings, and any diagnostic results supporting the discharge/admit diagnosis, lab results, radiology results, the need for outpatient follow up, to return to the emergency department if symptoms worsen or persist or if there are any questions or concerns that arise at home. Response to treatment: the patient's symptoms have mildly improved after treatment, and as a result, I will discharge patient. Special discussion: I discussed with the patient/guardian in detail that at this point there is no indication for admission to the hospital. It is understood, however, that if the symptoms persist or worsen the patient needs to return immediately for re-evaluation. ED course: Normal vitals, feels a little better, non-focal exam. CXR negative, CT abdomen without acute findings. COVID/Flu neg. No meningeal signs. Urine negative. Labs unremarkable, normal lactate. Most likely viral infection with myalgias, fever, diarrhea. Will dc home with return precautions. . 07/01 01:02 Order name: CBC with Diff; Complete Time: 01:56 rn 07/01 01:02 Order name: Basic Metabolic Panel; Complete Time: 01:56 rn 07/01 01:02 Order name: Urine Culture rn 07/01 01:02 Order name: Urine Microscopic Only; Complete Time: 03:45 rn 07/01 01:02 Order name: COVID-19/FLU A+B (Document "Date of Onset" if Symptomatic); Complete Time: rn 02:37 07/01 01:02 Order name: Blood Culture Adult (2) rn 07/01 01:02 Order name: Procalcitonin; Complete Time: 02:16 rn 07/01 01:02 Order name: Lactate; Complete Time: 01:56 rn 07/01 01:02 Order name: XRAY Chest (1 view) rn 07/01 02:49 Order name: CT Abd/Pelvis - IV Contrast Only rn 07/01 03:01 Order name: Urine Dipstick-Ancillary; Complete Time: 03:07 EDMS 07/01 03:02 Order name: Urine Dipstick-Ancillary EDNJ 07/01 01:02 Order name: IV Start; Complete Time: : rn 07/01 01:02 Order name: Urine Dipstick-Ancillary (obtain specimen); Complete Time: 03: rn 07/01 01:03 Order name: EKG; Complete Time: 01: rn 07/01 01:03 Order name: EKG - Nurse/Tech; Complete Time: rn 07/01 01:03 Order name: Cardiac monitoring; Complete Time: : rn 07/01 01:03 Order name: O2 Sat Monitoring; Complete Time: 01:06 rn EC:21 Rate is 85 beats/min. Rhythm is regular. QRS [place] is Normal. IN interval is normal. QRS rn interval is normal. QT interval is normal. No Q waves. T waves are Normal. No ST changes noted. Clinical impression: Normal ECG. Interpreted by me. Reviewed by me. Administered Medications: 01: Drug: NS 0.9% 1000 ml Route: IV; Rate: 1000 ml; Site: right antecubital; jb4 04:33 Follow up: Response: No adverse reaction; IV Status: Completed infusion; IV Intake: as6 1000ml 01:28 Drug: Tylenol 650 mg Route: PO; jb4 03:01 Follow up: Response: No adverse reaction as6 Disposition Summary: 07/01/21 04:16 Discharge Ordered Location: Home rn Problem: new rn Symptoms: have improved rn Condition: Stable rn Diagnosis - Fever, unspecified rn - Myalgia rn Followup: rn - With: Private Physician - When: As needed - Reason: Recheck today's complaints, Re-evaluation by your physician Discharge Instructions: - Discharge Summary Sheet rn - Fever, Adult rn Forms: - Medication Reconciliation Form rn - Thank You Letter rn - Antibiotic social media intern - Prescription Opioid Use rn - Family Work Release as6 Signatures: Dispatcher [employer] EDMS Mariano Alfonso MD MD rn Bryson, James, RN RN [email or web address] Stephie Gutierrez PA PA [email or web address] Harjinder White RN as6
--- NOTE | 2021-07-01 04:17 | ER ---
Nurse's Notes [facility] Name: Damian Abbasi Jr Age: 51 yrs Sex: Male : 1970 Arrival Date: 07/01/2021 Time: 00:52 Bed 6 Private MD: Diagnosis: Fever, unspecified;Myalgia Presentation: 07/01 01:06 Chief complaint: Patient states: He has had fever and chills that started on Monday. jb4 Had Diarrhea on Monday. His temp was 101 at home. Now he is complaining of chest pain and pain all over. Coronavirus screen: Vaccine status: Patient reports receiving the 2nd dose of the covid vaccine. Patient reports receiving the 1st dose of the Covid vaccine. Client presents with at least one sign or symptom that may indicate coronavirus-19. Standard/surgical mask placed on the client. Provider contacted for isolation considerations. Ebola Screen: No symptoms or risks identified at this time. Initial Sepsis Screen: Does the patient meet any 2 criteria? HR > 90 bpm. Yes Does the patient have a suspected source of infection? No. Patient's initial sepsis screen is negative. Risk Assessment: Do you want to hurt yourself or someone else? Patient reports no desire to harm self or others. Onset of symptoms was July 01, 2021. Transition of care: patient was not received from another setting of care. 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 - Social history:: Smoking status: Reported history of juuling and/or vaping. - Family history:: not pertinent. - Hospitalizations: : No recent hospitalization is reported. Screenin:29 Abuse screen: Denies threats or abuse. Denies injuries from another. Nutritional as6 screening: No deficits noted. Tuberculosis screening: No symptoms or risk factors identified. Fall Risk None identified. Assessment: 02:00 General: Appears in no apparent distress. ill, slender, Behavior is cooperative, as6 drowsy, flat, quiet. General: Reports chills for fever for feeling ill for fatigue for. Pain: Complains of pain in body aches. Neuro: Level of Consciousness is obeys commands, Oriented to person, place, time, situation. Cardiovascular: Capillary refill < 3 seconds Patient's skin is warm and dry. Respiratory: Airway is patent Trachea midline Respiratory effort is even, unlabored, Respiratory pattern is regular, symmetrical. GI: Reports diarrhea. 03:03 Reassessment: Patient appears in no apparent distress at this time. as6 Vital Signs: 01:06 BP 123 / 81; Pulse 98; Resp 16; Temp 100.2(O); Pulse Ox 99% on R/A; Weight 81.65 kg jb4 (R); Height 5 ft. 10 in. (177.80 cm) (R); Pain 9/10; 02:01 BP 119 / 80; Pulse 86; Resp 16 S; Pulse Ox 99% on R/A; as6 03:01 BP 111 / 75; Pulse 77; Resp 13 S; Temp 98.5(O); Pulse Ox 98% on R/A; as6 04:18 BP 95 / 60; Pulse 75; Resp 15 S; Pulse Ox 99% on R/A; as6 01:06 Body Mass Index 25.83 (81.65 kg, 177.80 cm) jb4 ED Course: 00:52 Patient arrived in ED. bp1 00:54 Mariano Alfonso MD is Attending Physician. rn 01:05 Harjinder White, LOS is Primary Nurse. as6 01:08 Triage completed. jb4 01:08 Arm band placed on right wrist. jb4 01:20 XRAY Chest (1 view) In Process Unspecified. EDMS 01:20 Inserted saline lock: 20 gauge in right forearm, using aseptic technique. Blood as6 collected. 01:28 Procalcitonin Sent. as6 01:29 Placed in gown. Bed in low position. Call light in reach. Side rails up X 1. Adult w/ as6 patient. monitoring and evaluation advisor on. Pulse ox on. NIBP on. :29 Lactate Sent. as6 01:29 Blood Culture Adult (2) Sent. as6 01:29 COVID-19/FLU A+B (Document "Date of Onset" if Symptomatic) Sent. as6 01:29 Basic Metabolic Panel Sent. as6 01:29 CBC with Diff Sent. as6 03:01 Urine Culture Sent. as6 03:01 Urine Microscopic Only Sent. as6 03:54 CT Abd/Pelvis - IV Contrast Only In Process Unspecified. EDMS 04:32 No provider procedures requiring assistance completed. IV discontinued, intact, as6 bleeding controlled, No redness/swelling at site. Pressure dressing applied. Administered Medications: 01:28 Drug: NS 0.9% 1000 ml Route: IV; Rate: 1000 ml; Site: right antecubital; jb4 04:33 Follow up: Response: No adverse reaction; IV Status: Completed infusion; IV Intake: as6 1000ml 01:28 Drug: Tylenol 650 mg Route: PO; jb4 03:01 Follow up: Response: No adverse reaction as6 Intake: 04:33 IV: 1000ml; Total: 1000ml. as6 Outcome: 04:16 Discharge ordered by MD. rn 04:32 Discharged to home ambulatory, with significant other. as6 04:32 Condition: stable 04:32 Discharge instructions given to patient, significant other, Instructed on discharge instructions, follow up and referral plans. Demonstrated understanding of instructions, follow-up care. 04:32 Patient left the ED. as6 Signatures: Dispatcher [employer] EDMS Mariano Alfonso MD MD rn Bryson, James RN RN jb4 Rebekah Carty Ashby, RN RN as6
[2021-07-01 05:49] VITALS: TEMP 98.5
[2021-07-01 05:50] VITALS: BP 95/60; O2SAT 99
--- NOTE | 2021-07-01 10:28 | RAD REPORT ---
EXAM DESCRIPTION: CT Abdomen and Pelvis With Intravenous Contrast CLINICAL HISTORY: The patient is 51 years old and is Male; Abdominal pain, acute, nonlocalized TECHNIQUE: Axial computed tomography images of the abdomen and pelvis with intravenous contrast. S agittal and coronal reformatted images were created and reviewed. This CT exam was performed using one or more of the following dose reduction techniques: automated exposure control, adjustment of t he mA and/or kV according to patient size, and/or use of iterative reconstruction technique. COMPARISON: No relevant prior studies available. FINDINGS: LUNG BASES: Unremarkable. No mass. No consolidation. ABDOMEN: LIVER: Unremarkable. No mass. GALLBLADDER AND BILE DUCTS: Gallbladder is contracted. PANCREAS: No ductal dilation. No mass. SPLEEN: Unremarkable. ADRENALS: Unremarkable. No mass. KIDNEYS AND URETERS: Unremarkable. The kidneys enhance symmetrically. No obstructing renal or ur eteral calculus is seen. No hydronephrosis or hydroureter. No perinephric fluid or stranding. STOMACH AND BOWEL: The stomach is notable distended. The proximal small bowel is decompressed. T he mid small bowel demonstrates fluid and air but is normal in caliber. Stool is present throughout c olon. There is no mucosal thickening or evidence of bowel obstruction. PELVIS: APPENDIX: The appendix is normal in caliber without surrounding inflammation. BLADDER: Unremarkable. No mass. REPRODUCTIVE: Unremarkable as visualized. ABDOMEN and PELVIS: INTRAPERITONEAL SPACE: Unremarkable. No free air. No significant fluid collection. BONES/JOINTS: No acute fracture. SOFT TISSUES: The soft tissues are normal. VASCULATURE: Unremarkable. No abdominal aortic aneurysm. LYMPH NODES: Unremarkable. No enlarged lymph nodes. IMPRESSION: No acute findings on this contrasted CT of the abdomen and pelvis to explain the patient 's symptoms. Electronically signed by: Anusha Calix MD 07/01/2021 4:09 AM CDT Due to temporary technical issues with the PACS/Fluency reporting system, reports are being signed by the in house radiologist without review as a courtesy to ensure prompt reporting. The interpreting r adiologist is fully responsible for the content of the report.
--- NOTE | 2021-07-01 10:44 | RAD REPORT ---
EXAM DESCRIPTION: XR Chest 1 View AP CLINICAL HISTORY: Fever COMPARISON: Chest 1 View AP 04/13/2021 report without images TECHNIQUE: Chest 1 View AP FINDINGS: Trachea midline. Heart size and pulmonary vessels within normal limits. Lungs clear without evidence of consolidation, mass, or significant pulmonary edema. No significant pleural effusion or pneumothorax. Bilateral acromioclavicular DJD. IMPRESSION: Unremarkable chest radiograph. Electronically signed by: Arturo Wilson MD 07/01/2021 1:31 AM CDT Due to temporary technical issues with the PACS/Fluency reporting system, reports are being signed by the in house radiologist without review as a courtesy to ensure prompt reporting. The interpreting r adiologist is fully responsible for the content of the report.
== END 2021-07-01 04:32 | disposition home or self-care (01) ==
LOC: ER 00:46
DX: R50.9 Fever, unspecified (principal); M79.10 Myalgia, unspecified site; Z91.013 Allergy to seafood
CPT/HCPCS: 0240U; 36415; 71045; 74177; 80048; 81003; 81015; 83605; 84145; 85025; 87040; 87086; 87088; 93005; 96360; 96361; 99284; J7030; Q9967